=== PATIENT | female | born 1960 | race Caucasian/White ===

== ENCOUNTER → 2020-06-24 08:56 | Outpatient (BNVA) | payer OTHER, SELFPAY | PROVIDERS: Visit Provider Internal Medicine Critical Care Medicine | DX: Z01.812 Encounter for preprocedural laboratory examination (principal); Z20.822 Contact with and (suspected) exposure to COVID-19 | CPT/HCPCS: 87635 ==

== ENCOUNTER 2020-06-29 08:50 | Outpatient (CLI) | payer OTHER, SELFPAY ==
--- NOTE | 2020-06-29 08:58 | CT_ITS ---
WS: [id number] LDCT LUNG CANCER SCREENING TECHNIQUE: Noncontrast CT of the chest with coronal and sagittal reformatted images. CLINICAL INFORMATION: NICOTINE DEPENDENCE, CIGARETTES COMPARISON: CT chest 3 16,019 DLP: 56.96 mGy.cm DIvol: 1.[address] scans at [facility] use at least one of these dose optimization techniques: automat ed exposure control; mA and/or kV adjustment per patient size (includes targeted exams where dose is matched to clinical indication); or iterative reconstruction. FINDINGS: Advanced chronic emphysematous changes. Small esophageal hiatal hernia. Calcified granuloma left uppe r lobe. No suspicious pulmonary parenchymal abnormalities. No mediastinal or hilar lymphadenopathy. A drenal glands are normal. CT/CT lung screening [id number] IMPRESSION: LUNG-RADS: 2-Benign Appearance or Behavior FOLLOW UP: 12 Month: Continue annual screening with LDCT
--- NOTE | 2020-06-29 14:26 | PFTS_ITS ---
Date of Study:06/29/20 Date of Dictation: MECHANICS: Forced vital capacity (FVC) is reduced. Forced expiratory volume in one second (FEV1) is reduced. FEV1/FVC is reduced. FLOW VOLUME LOOP: Reduced flow at all lung volumes with significant scooping. LUNG VOLUMES: Total lung capacity (TLC) is increased. Residual volume (RV) is increased. DIFFUSING CAPACITY FOR CARBON MONOXIDE: Severely reduced. INTERPRETATION: The pulmonary function tests are consistent with very severe airflow obstruction. There is no significant postbronchodilator response. Lung volumes are consistent with hyperinflation and air trapping. Gas exchange (DLCO) is severely reduced. MTDD
== END 2020-06-29 08:51 | disposition home or self-care (01) ==
LOC: RT 08:52
PROVIDERS: PCP Internal Medicine; Visit Provider Internal Medicine Critical Care Medicine
DX: Z12.2 Encounter for screening for malignant neoplasm of respiratory organs (principal); F17.210 Nicotine dependence, cigarettes, uncomplicated
CPT/HCPCS: 71271; 94010; 94726; 94729

== ENCOUNTER 2022-01-25 07:50 | Outpatient (CLI) | payer OTHER, SELFPAY ==
--- NOTE | 2022-01-25 07:56 | CT_ITS ---
WS: [id number] LDCT LUNG CANCER SCREENING TECHNIQUE: Noncontrast CT of the chest with coronal and sagittal reformatted images. CLINICAL INFORMATION: annual lung screening COMPARISON: June 29, 2020 DLP: 71.50 mGy.cm DIvol: Mean CTDIvol: 1.60 (mGy) All CT scans at [facility] use at least one of these dose optimization techniques: automat ed exposure control; mA and/or kV adjustment per patient size (includes targeted exams where dose is matched to clinical indication); or iterative reconstruction. FINDINGS: Aortic calcification. Normal caliber thoracic aorta. Coronary calcification. No mediastinal or hilar lymphadenopathy. No axillary lymphadenopathy. Adrenal glands are normal. Small esophageal hiatal hernia. Mild thoracic kyphosis. New suspicious spi culated lesion along the LEFT upper lobe posteriorly. This measures approximately 8.7 x 1.3 CM. This extends over approximately 2.3 CM on the sagittal imaging. Recommend further evaluation with PET/CT. Calcified granuloma LEFT upper lobe. Tiny subpleural nodule LEFT upper lobe anteriorly. Tiny subpleural nodule RIGHT upper lobe. CT/CT lung screening [id number] IMPRESSION: New spiculated lesion in the LEFT upper lobe just above the superio r hilum medially. This has a suspicious appearance and recommend further evalua tion with PET/CT. LUNG-RADS: 4B-Suspicious FOLLOW UP: PET/CT recommended
== END 2022-01-25 07:51 | disposition home or self-care (01) ==
LOC: RAD 07:52
PROVIDERS: PCP Internal Medicine; Visit Provider Internal Medicine Critical Care Medicine
DX: Z12.2 Encounter for screening for malignant neoplasm of respiratory organs (principal); F17.210 Nicotine dependence, cigarettes, uncomplicated
CPT/HCPCS: 71271

== ENCOUNTER 2022-02-27 10:30 | Outpatient (CLI) | payer OTHER, SELFPAY | END 2022-02-27 10:31 | disposition home or self-care (01) | LOC: SLEEP 02-28 15:01 | PROVIDERS: PCP Internal Medicine; Visit Provider Internal Medicine Critical Care Medicine | DX: J44.9 Chronic obstructive pulmonary disease, unspecified (principal) | CPT/HCPCS: 94762 ==

== ENCOUNTER 2022-03-03 09:05 | Outpatient (CLI) | payer OTHER, SELFPAY ==
--- NOTE | 2022-03-03 09:30 | PETR_ITS ---
PROCEDURE INFORMATION: Exam: PET/CT Skull Base to Mid-thigh Exam date and time: 03/03/2022 10:03 AM Age: 61 years old Clinical indication: Abnormal findings; Abnormal CT lung screen 01/25/2022; Additional info: Spiculated lesion, lrads 4b-suspicious, 01/25/22 CT shows new spiculated lesion in the left upper LABS AND CLINICAL REPORTS: Glucose: 71 mg/dl Treatment strategy for malignancy (PET staging): Initial Staging (PI) TECHNIQUE: Imaging protocol: Following at least four-hour fasting and following the injection of F-18-FDG, low dose CT images were obtained. Then, PET images were obtained. Attenuation corrected images were constructed using the CT scan. Fused images of PET and CT were reviewed. The standardized uptake values (SUV) reported below are maximum values within a region of interest, expressed in gm/ml. Exam includes orbital meatal line to mid-thigh. Radiopharmaceutical: 1359 mCi F-18 FDG (Fluorodeoxyglucose), IV. Time of imaging post radiopharmaceutical administration: 1 hour Injection site: Information not provided COMPARISON: CT lung screening [id number] 01/25/2022 8:03 AM FINDINGS: Brain: Visualized brain has normal physiologic uptake. Pharynx: No abnormal uptake. Larynx: No abnormal uptake. Lungs, pleura and trachea: 17 x 8 mm spiculated nodule in the left upper lobe on image 38 measures 2.9 SUV. 7 x 6 mm nodule in the superior segment of the left lower lobe on image 44 measures 2 SUV. 4 mm calcified granuloma noted in the apex of the left upper lobe. There is moderate centrilobular emphysema most prominent in the upper lungs. No pleural effusion. Heart: Normal physiologic uptake. There is no cardiomegaly. Mild coronary artery calcification is present. There is no pericardial effusion. Mediastinal space: See below in lymph nodes . There is a small hiatal hernia. Liver: No abnormal uptake. Gallbladder and bile ducts: No abnormal uptake. No calcified gallstones. Pancreas: No abnormal uptake. Spleen: No abnormal uptake. No splenomegaly. Adrenal glands: No abnormal uptake. Kidneys and ureters: Normal physiologic uptake. No hydronephrosis. Subtle linear capsular calcification laterally in the mid/lower pole of the left kidney on image 85. Stomach and bowel: No abnormal uptake. No abnormal dilatation of the bowel. Intraperitoneal and retroperitoneal spaces: No abnormal uptake. No ascites. Bladder: Normal physiologic uptake. Reproductive: No abnormal uptake. 1.2 cm calcified nodule exophytic from the uterine fundus is suggestive of degenerative fibroid. About 5.6 x 3 cm heterogenous density oval-shaped structure in the expected location of the right adnexa to the right of the uterine body on axial image 121 with low-grade uptake of 1.3 SUV is suggestive of benign finding, partially calcified exophytic uterine fibroid or complex right ovarian lesion. Vasculature: No abnormal uptake. No aortic aneurysm. Lymph nodes: Borderline increased uptake of 2.9 SUV on the right side and 2.3 SUV on the left side noted within normal size hilar lymph nodes which is not entirely specific and can be benign reactive in nature. No FDG avid lymphadenopathy in the neck, abdomen, pelvis, and extremities. Bones/joints: No abnormal uptake in the visualized axial and appendicular skeleton. Soft tissues: No mass. Increased intramuscular uptake in both shoulders on the left more than on the right side is suggestive of benign finding. PET/PET [facility] INITIAL [id number] IMPRESSION: Two FDG avid findings in the left lung are concerning for malignancy (17 x 8 mm spiculated nodule in the left upper lobe measuring 2.9 SUV, 7 x 6 mm nodule in the superior segment of the left lower lobe measuring 2 SUV). Low-grade uptake of 2.3-2.9 SUV within bilateral normal size hilar lymph nodes is nonspecific. There is no FDG avid findings outside of the chest to suggest distant metastatic disease. There is benign intramuscular uptake in the shoulders more prominently on the left side. About 5.6 x 3 cm non FDG avid finding in the area of the right adnexa is likely benign representing either exophytic uterine fibroid or complex right ovarian lesion. If no prior exams are available for comparison to confirm long-term stability further evaluation with pelvic ultrasound can be considered if clinically warranted.
== END 2022-03-03 09:06 | disposition home or self-care (01) ==
LOC: RAD 03-05 05:59
PROVIDERS: PCP Internal Medicine; Visit Provider Internal Medicine Pulmonary Disease
DX: R91.8 Other nonspecific abnormal finding of lung field (principal)
CPT/HCPCS: 78815; A9552

== ENCOUNTER 2022-06-04 09:54 | Outpatient (CLI) | payer OTHER, SELFPAY ==
--- NOTE | 2022-06-04 10:00 | CT_ITS ---
WS: [id number] CT CHEST TECHNIQUE: Noncontrast CT of the chest with coronal and sagittal reformatted images. CLINICAL INFORMATION: 3 month f/u nodule COMPARISON: PET/CT March 03, 2022. CT lung screen January 25, 2022 DLP: 223.[address] scans at [facility] use at least one of these dose optimization techniques: automated e xposure control; mA and/or kV adjustment per patient size (includes targeted exams where dose is matc hed to clinical indication); or iterative reconstruction. FINDINGS: Moderate to advanced chronic emphysematous changes. Normal caliber thoracic aorta. Aortic calcificati on. Coronary calcification. No mediastinal or hilar lymphadenopathy. No axillary lymphadenopathy. Sma ll esophageal hiatal hernia. Adrenal glands are normal. Spiculated lesion LEFT upper lobe measures approximately 1.4 x 0.8 x 2.1 cm on the sagittal imaging u nchanged since January 25, 2022. This is is also unchanged since the recent PET/CT. This was FDG clarence d on the recent PET/CT suspicious for neoplasm. Additional FDG avid nodule in the superior segment LEFT lower lobe measuring 6 mm difficult to ident elle on the axial imaging today due to slice thickness. This is better seen on the coronal and sagitta l reformatted images measuring 6 mm and appears unchanged. No mediastinal or hilar lymphadenopathy. No other suspicious findings. CT/CT chest wo con [id number] IMPRESSION: 1. Previously described FDG avid LEFT upper lobe spiculated nodule is unchange d since January 25, 2022. 2. Additional FDG avid 6 mm nodule in the superior segment LEFT lower lobe bet ter seen on the coronal and sagittal reformatted images today is also unchanged since the recent PET/CT and prior study of January 25, 2022 3. No mediastinal or hilar lymphadenopathy.
== END 2022-06-04 09:55 | disposition home or self-care (01) ==
LOC: RAD 09:56
PROVIDERS: PCP Internal Medicine; Visit Provider Internal Medicine Pulmonary Disease
DX: R91.8 Other nonspecific abnormal finding of lung field (principal)
CPT/HCPCS: 71250

== ENCOUNTER 2022-08-22 15:52 | Inpatient (IN) | payer OTHER, SELFPAY ==
[2022-08-22] VITALS (14 sets, daily range): BP systolic 127–155; BP diastolic 69–112; PULSE 93–115; RESP 17–33; TEMP 36.9–37.2; O2SAT 83–98
--- NOTE | 2022-08-22 16:13 | ECG_ITS ---
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 Measurements Intervals [place] Rate: 106 P: 85 NH: 139 QRS: 81 QRSD: 78 T: 78 QT: 327 QTc: 436 Interpretive Statements SINUS TACHYCARDIA RIGHT ATRIAL ENLARGEMENT [0.3mV P-WAVE] MODERATE ST DEPRESSION [0.05+ mV ST DEPRESSION] Compared to ECG 05/10/2018 14:54:06 ST (T wave) deviation now present Myocardial infarct finding no longer present Electronically Signed On 08-23-2022 11:03:19 CDT by Rica Castillo M.D. [email or web address]
--- NOTE | 2022-08-22 16:14 | XR_ITS ---
WS: [id number] Exam: XR chest 1V portable [id number] Date/Time of Exam: 08/22/2022 4:15 PM Reason For Exam: sob Comparison 05/10/2018. The lungs are clear and fully inflated. Normal cardiomediastinal silhouette. Bony structures are inta ct. XR/XR chest 1V portable [id number] IMPRESSION: 1. No acute cardiopulmonary finding. Pulmonary hyperinflation.
--- NOTE | 2022-08-22 16:24 | W.ED.SOB ---
HPI - SOB/Dyspnea General: Chief Complaint: Shortness of Breath/Dyspnea Stated Complaint: SOB, High HR Time Seen by Provider: 08/22/22 16:11 Source: patient Mode of arrival: ambulatory Limitations: no limitations History of Present Illness: HPI Narrative: 61-year-old female has a history of COPD states she has been having an increased cough over the last 3 days productive of yellow sputum she has been more short of breath she does not wear oxygen at home she was in the 80s in the waiting room currently on 3 L she has had increased wheezing as well denies any fevers denies any pain. [facility] ED PFSH: Medical History Chronic obstructive pulmonary disease Surgical History Hx of section Family History Mother CHF (congestive heart failure) Hypertension Diabetes Brother Hypertension Father Cancer Lung Grandmother Diabetes Social History Smoking and tobacco status: current every day smoker cigarettes Packs smoked per day: 0.5 Years cigarettes smoked: 46 [ Other cigarette details: 1 ppd X 40 years, Started at age 16 years.] Quit status (tobacco): considering quitting Second hand smoke exposure: Yes Smoking risk assessment/counseling performed?: Yes Alcohol intake: former Substance/Drug Use: never Lives independently: Yes Household members: spouse Marital status: Current occupational status: employed Current occupation: [employer] Pets and animals: Yes Do you think of yourself as: Straight/Heterosexual Current gender identity: Female Physical Exam Const: COMMON NORMALS: patient oriented x3 GENERAL APPEARANCE: in distress and ill appearing HENMT: COMMON NORMALS: normocephalic HEAD & SCALP: normocephalic Eye: COMMON NORMALS: Equal, round and reactive pupils present and EOMs intact bilaterally PUPIL: Yes Equal, round and reactive pupils present Neck/C-Spine: COMMON NORMALS: full ROM and supple Chest: COMMONS NORMALS: normal inspection of the chest and normal palpation of entire chest wall Resp: EFFORT & INSPECTION: Yes tachypneic AUSCULTATION: wheezes Cardio: COMMON NORMALS: regular rhythm and No murmurs present (Cardio) RATE: tachycardic RHYTHM: regular rhythm GI: COMMON NORMALS: Normal to inspection, nondistended, normoactive bowel sounds present, Soft to palpation, non-tender and no masses PALPATION: Yes Soft to palpation Extremity: COMMON NORMALS: normal to inspection and full ROM Neuro: COMMON NORMALS: patient oriented x3, moves all extremities and no focal motor deficits Psych: COMMON NORMALS: mental status grossly normal, Normal thought process present and cooperative THOUGHT PROCESS: Normal thought process present Skin: COMMON NORMALS: no rashes or lesions noted and no wounds GENERAL SKIN EXAM: no rashes or lesions noted Course Vital Signs: Vital signs: Vital Signs Temperature 98.4 F 08/22/22 16:01 Pulse Rate 108 H 08/22/22 17:02 Respiratory Rate 33 H 08/22/22 17:02 Blood Pressure 155/112 08/22/22 17:02 Pulse Oximetry 97 08/22/22 17:02 Oxygen Delivery Me thod CPAP 08/22/22 17:02 Oxygen Flow Rate 3 08/22/22 16:34 Fraction of Inspir ed Oxygen 30 08/22/22 16:51 MDM - SOB/Dyspnea Medical Decision Making Patient presents here with COPD exacerbation she was hypoxic here she is currently on BiPAP she is improved here x-ray shows no definite pneumonia but she has had a cough with sputum changes gave IV antibiotics, blood culture she will be admitted I spoke to hospitalist who will admit. Medical Records I reviewed the patient's medical records. Lab Data I reviewed the patient's lab results. 08/22/22 16:20 08/22/22 16:20 Labs/Radiology: Laboratory Results WBC 6.9 10^3/uL (4.0-10.0) 08/22/22 16:20 RBC 5.46 10^6/uL (4.1-5.3) H 08/22/22 16:20 Hgb 16.3 g/dL (11.5-15.3) H 08/22/22 16:20 Hct 50.1 % (37.0-47.0) H 08/22/22 16:20 MCV 91.8 fl (81-99) 08/22/22 16:20 MCH 29.9 pg (28.0-34.0) 08/22/22 16:20 MCHC 32.5 g/dL (30.0-36.0) 08/22/22 16:20 RDW 13.7 % (12.1-15.1) 08/22/22 16:20 Plt Count 177 10^3/cmm (130-400) 08/22/22 16:20 MPV 11.2 fL (7.4-10.4) H 08/22/22 16:20 Neut % (Auto) 71.7 % 08/22/22 16:20 Lymph % (Auto) 11.0 % 08/22/22 16:20 [place] % (Auto) 15.9 % 08/22/22 16:20 Eos % (Auto) 0.7 % 08/22/22 16:20 Baso % (Auto) 0.6 % 08/22/22 16:20 Neut # (Auto) 4.96 10^3/uL (1.8-7.7) 08/22/22 16:20 Lymph # (Auto) 0.8 10^3/uL (0.8-4.8) 08/22/22 16:20 [place] # (Auto) 1.1 10^3/uL (0.2-0.9) H 08/22/22 16:20 Eos # (Auto) 0.1 10^3/uL (0.0-0.8) 08/22/22 16:20 Baso # (Auto) 0.0 10^3/uL (0.0-0.1) 08/22/22 16:20 Nucleated RBC % (auto) 0 % 08/22/22 16:20 Nucleated RBCs # 0.0 /100WBC 08/22/22 16:20 Specimen Type Arterial 08/22/22 16:15 Sample Site Brachial, right 08/22/22 16:15 ABG pH 7.37 (7.35-7.45) 08/22/22 16:15 ABG pCO2 47.9 mmHg (35-45) H 08/22/22 16:15 ABG pO2 87.3 mmHg (80.0-100.0) 08/22/22 16:15 ABG HCO3 27.5 mmol/L (22-26) H 08/22/22 16:15 ABG Base Excess 1.3 mmol/L (-2.0-2.0) 08/22/22 16:15 Twan Test N/a 08/22/22 16:15 Hematocrit 48.6 % (37-47) H 08/22/22 16:15 Hgb O2 Saturation 95.0 % (95-100) 08/22/22 16:15 Carboxyhemoglobin 2.0 %THgb (0.4-20.1) 08/22/22 16:15 Methemoglobin 0.8 % (0.4-1.5) 08/22/22 16:15 Total Hemoglobin 15.9 g/dL (12-16) 08/22/22 16:15 O2 Delivery Device Nc 08/22/22 16:15 O2 Liters/Min 2.5 % 08/22/22 16:15 Quality Process Lead ID Gd 08/22/22 16:15 Sodium 136 mmol/L (136-145) 08/22/22 16:20 Potassium 4.1 mmol/L (3.5-5.1) 08/22/22 16:20 Chloride 98 mmol/L (98-107) 08/22/22 16:20 Carbon Dioxide 26 mmol/L (22-29) 08/22/22 16:20 Anion Gap 16.1 (5-19) 08/22/22 16:20 BUN 15 mg/dL (8-23) 08/22/22 16:20 Creatinine 0.5 mg/dL (0.5-0.9) 08/22/22 16:20 GFR Calculation 125.4 mL/min (90-130) 08/22/22 16:20 Glucose 94 mg/dL (65-115) 08/22/22 16:20 Calculated Osmolality 283 mOsm/kg (285-295) L 08/22/22 16:20 Calcium 9.0 mg/dL (8.5-10.5) 08/22/22 16:20 Total Bilirubin 0.5 mg/dL (0.15-1.2) 08/22/22 16:20 AST 23 U/L (0-32) 08/22/22 16:20 ALT 24 U/L (0-33) 08/22/22 16:20 Alkaline Phosphatase 131 U/L (35-105) H 08/22/22 16:20 NT-Pro-B Natriuret Pep 1822 pg/mL (0-125) H 08/22/22 16:20 Total Protein 7.4 g/dL (6.6-8.7) 08/22/22 16:20 Albumin 4.1 g/dL (3.5-5.2) 08/22/22 16:20 Globulin 3.3 g/dL (1.3-4.6) 08/22/22 16:20 SARS-CoV-2 Ag (Rapid) negative (Negative) 08/22/22 16:48 EKG Data EKG 1: I personally reviewed and interpreted this EKG as follows: EKG Interpretation Date: 08/22/22 EKG interpretation time: 16:30 Interpretation: sinus tach hr [address] or t wave abnormalities qrs 78 qtc 389 Discharge Plan Discharge Patient Disposition: Admitted As Inpatient Clinical Impression: Acute exacerbation of chronic obstructive airways disease, Acute respiratory failure with hypoxia Condition: Stable Prescriptions: No Action sertraline 50 mg tablet 50 mg PO BEDTIME albuterol sulfate 2.5 mg /3 mL (0.083 %) solution for nebulization 2.5 mg inhalation Q4H PRN (Reason: shortness of breath or wheezing) Qty: 180 3RF prednisone 5 mg tablet 5 mg PO DAILY 90 Days Qty: 90 1RF montelukast 10 mg tablet 10 mg PO DAILY PRN (Reason: Allergy Symptoms) Combivent Respimat 20-100 mcg/actuation mist 1 puff INHALATION QID Trelegy Ellipta 100-62.5-25 mcg blister with device 1 inh INHALATION DAILY Proventil HFA 90 mcg/actuation HFA aerosol inhaler 2 puff inhalation Q4H PRN (Reason: shortness of breath or wheezing) Referrals: Teodoro Peter DO [Primary Care Provider] - Coding Level of Care Code ED Drive Thru Order Taker for Chg Jaky
[2022-08-22 16:29] LABS: ABG PCO2 47.9 mmHg (35-45); ABG PH Result 7.37 (7.35-7.45); Arterial Blood Gas Hematocrit 48.6 % (37-47); Base Excess ABG 1.3 mmol/L (-2.0-2.0); Blood Gas LPM 2.5 %; Blood Gas Operator Identificat GD; Blood Gas Sample Site Brachial, right; Blood Gas Sample Type Arterial; HCO3 ABG 27.5 mmol/L (22-26); Methemoglobin 0.8 % (0.4-1.5); Oxygen Device NC; PO2 ABG 87.3 mmHg (80.0-100.0); Total Hemoglobin 15.9 g/dL (12-16)
[2022-08-22 16:39] LABS: Basophils % 0.6 %; Eosinophils # 0.1 10^3/uL (0.0-0.8); Eosinophils % 0.7 %; Hematocrit 50.1 % (37.0-47.0); Hemoglobin 16.3 g/dL (11.5-15.3); Lymphocytes # 0.8 10^3/uL (0.8-4.8); Mean Corpuscular HGB Conc 32.5 g/dL (30.0-36.0); Mean Corpuscular Hemoglobin 29.9 pg (28.0-34.0); Mean Corpuscular Volume 91.8 fl (81-99); Mean Platelet Volume 11.2 fL (7.4-10.4); Monocytes # 1.1 10^3/uL (0.2-0.9); Monocytes % 15.9 %; Neutrophils # 4.96 10^3/uL (1.8-7.7); Neutrophils % 71.7 %; Nucleated Red Blood Cells % 0 %; Platelet Count 177 10^3/cmm (130-400); Red Blood Count 5.46 10^6/uL (4.1-5.3); Red Cell Distribution Width 13.7 % (12.1-15.1); White Blood Count 6.9 10^3/uL (4.0-10.0)
[2022-08-22] MEDS: albuterol 2.5 mg/3 mL Neb 5 MG INHALATION (16:44)
[2022-08-22] MEDS: ipratropium 0.5 mg/2.5 mL Neb INHALATION ×2 (16:45→21:59)
--- NOTE | 2022-08-22 16:48 | PC.PHAR ---
pt and pts states the pt doesnt use budesonide 0.5mg/2ml suspension 1 vial bid,perforomist 2ml bid or yupelri 175mcg daily states not covered by insurance states the pt is using the trelegy elliptal-
[2022-08-22] MEDS: methylPREDNISolone sod succ 125 mg SDV IV (17:09)
[2022-08-22 17:13] LABS: Alanine Aminotransferase 24 U/L (0-33); Albumin Level 4.1 g/dL (3.5-5.2); Alkaline Phosphatase 131 U/L (35-105); Aspartate Amino Transferase 23 U/L (0-32); Blood Urea Nitrogen 15 mg/dL (8-23); Carbon Dioxide 26 mmol/L (22-29); Chloride 98 mmol/L (98-107); Globulin 3.3 g/dL (1.3-4.6); Glomerular Filtration Rate 125.4 mL/min (90-130); Glucose 94 mg/dL (65-115); NT Pro B Type Natriuretic Pept 1822 pg/mL (0-125); Osmolality Calculated 283 mOsm/kg (285-295); Sodium 136 mmol/L (136-145); Total Bilirubin 0.5 mg/dL (0.15-1.2); Total Protein 7.4 g/dL (6.6-8.7)
[2022-08-22 17:16] LABS: Anion Gap 16.1 (5-19); Potassium 4.1 mmol/L (3.5-5.1)
[2022-08-22] MEDS: cefTRIAXone 1,000 MG in sodium chloride 0.9% (plus) 50 ML 100 MG IV ×2 (17:18→21:15)
[2022-08-22 17:28] LABS: SARS Covid-2 Antigen negative (Negative)
--- NOTE | 2022-08-22 17:47 | PC.NURSE ---
HAD TO PLACE CEFTRIAXONE ON A PUMP
--- NOTE | 2022-08-22 17:49 | PM.HP ---
Providers/Chief Complaint Primary Care Provider: Teodoro Peter DO Chief Complaint: SOB, High HR History of Present Illness Ebonie Damon is a 61 year old female with past medical history of COPD, emphysema, chronic smoker presents to the ER today with worsening difficulty in breathing and cough with expectoration over last 3 days. As per patient she is not on baseline oxygen but has been feeling more out of breath recently both at rest and on exertion. Denies any nausea vomiting, headache, dizziness, fever, recent travel or sick exposure. In the ER was found to be saturating in low 80s hence was placed on oxygen. Patient required BiPAP to decrease work of breathing. She has received nebulization treatment and 125 mg of IV Solu-Medrol. She was also given IV ceftriaxone and azithromycin with concerns for possible community-acquired pneumonia. Review of Systems General: Reports: 10 or more systems reviewed and unremarkable except in HPI and below Const: Denies: fever(s), chills, body aches, change in appetite, change in weight, malaise, night sweats, diaphoresis, change in sleep pattern, daytime sleepiness or snoring Eyes: Denies: change in vision, blurry vision, photophobia, eye discomfort or eye discharge ENMT: Denies: throat pain, enlarged tonsils, hoarseness, mouth pain, oral sores, dry mouth, tinnitus, nasal congestion or post nasal drip Card: Denies: chest pain, palpitations, irregular heart rhythm, edema, swelling of feet/ankles, lightheadedness, syncope, pre-syncope, dyspnea on exertion, orthopnea, leg pain with exertion or acrocyanosis Resp: Denies: dyspnea, productive cough, non-productive cough, wheezing, stridor, pain on inspiration, change in phlegm color, hemoptysis or chest congestion GI: Denies: abdominal pain, nausea, vomiting, hematemesis, coffee ground emesis, dysphagia, heartburn, diarrhea, constipation, bloating, GI cramping, change in bowel habits, pain on defecation, hematochezia or melena : Denies: flank pain, dysuria, urinary frequency, urinary urgency, urinary hesitancy, nocturia or hematuria Musc: Denies: neck pain, back pain, extremity pain, joint pain, joint swelling, joint redness, joint stiffness or limited range of motion Neuro: Denies: headache(s), numbness in extremities, weakness in extremities, sensory changes, lack of coordination, difficulty walking, frequent falls, dizziness, vertigo, confusion, Slurred speech present, difficulty communicating thoughts or seizure-like activity Psych: Denies: anxiety, depression, mood swings, panic attacks, hopelessness or irritability Endo: Denies: polyuria, polydipsia, tired all the time, cold intolerance, excessive sweating, flushing or heat intolerance Peña/Lymph: Denies: easy bruising or easy bleeding All/Imm: Denies: tongue swelling, facial swelling or acute wheezing Medications/Allergies Home Medications Medication Instructions Recorded Confirmed Last Taken Type albuterol sulfate 2.5 mg/3 mL 2.5 mg (3 mL) inhalation Q4H PRN 12/07/20 08/22/22 Unknown Rx (0.083 %) solution for nebulization shortness of breath or wheezing #180 mL prednisone 5 mg tablet 5 mg PO DAILY 90 days #90 tabs 03/26/22 08/22/22 08/21/22 Rx sertraline 50 mg tablet 50 mg PO BEDTIME 05/21/22 08/22/22 08/21/22 History albuterol sulfate 90 mcg/actuation 2 puff inhalation Q4H PRN 08/22/22 08/22/22 Unknown History aerosol inhaler (Proventil HFA) shortness of breath or wheezing fluticasone fur. 100 mcg-umeclid 1 inh inhalation DAILY 08/22/22 08/22/22 Unknown History 62.5 mcg-vilant 25 mcg inhalat.powder (Trelegy Ellipta) ipratropium 20 mcg-albuterol 100 1 puff inhalation QID 08/22/22 08/22/22 Unknown History mcg/actuation mist for inhalation (Combivent Respimat) montelukast 10 mg tablet 10 mg PO DAILY PRN Allergy Symptoms 08/22/22 08/22/22 Unknown History Allergies Allergy/AdvReac Type Severity Reaction Status Date / Time No Known Allergies Allergy Verified 08/22/22 16:43 PFSH Acute PFSH: Medical History Chronic obstructive pulmonary disease Surgical History Hx of section Family History Mother CHF (congestive heart failure) Hypertension Diabetes Brother Hypertension Father Cancer Lung Grandmother Diabetes Social History Smoking and tobacco status: current every day smoker cigarettes Packs smoked per day: 0.5 Years cigarettes smoked: 46 [ Other cigarette details: 1 ppd X 40 years, Started at age 16 years.] Quit status (tobacco): considering quitting Second hand smoke exposure: Yes Smoking risk assessment/counseling performed?: Yes Alcohol intake: former Substance/Drug Use: never Lives independently: Yes Household members: spouse Marital status: Current occupational status: employed Current occupation: [employer] Pets and animals: Yes Do you think of yourself as: Straight/Heterosexual Current gender identity: Female Vitals/I&O/Wt Last Vital Signs Temp 98.4 F 08/22/22 16:01 Pulse 108 H 08/22/22 17:02 Resp 33 H 08/22/22 17:02 BP 155/112 08/22/22 17:02 Pulse Ox 97 08/22/22 17:02 O2 Del Method CPAP 08/22/22 17:02 O2 Flow Rate 3 08/22/22 16:34 FiO2 30 08/22/22 16:51 Weight last 48 hrs Weight 59.874 kg Physical Exam Narrative: EXAM NARRATIVE: General: No acute distress, AO x3, NC oxygen supplementation HEENT: PERRLA, pupils bilaterally equal and reactive Chest: Bilateral bronchial breath sounds all over lung fontaine with occasional rhonchi and fine crackles CVS: S1-S2 regular, no murmurs, tachycardia, no gallops, no rubs Abdomen: Soft, nontender, no organomegaly, bowel sounds present, morbidly obese Neuro: No focal deficits, no facial deformity, AO x3, power 5/5 in all limbs Data 08/23/22 04:50 08/23/22 04:50 Other Labs: Laboratory Results WBC 6.9 10^3/uL (4.0-10.0) 08/22/22 16:20 RBC 5.46 10^6/uL (4.1-5.3) H 08/22/22 16:20 Hgb 16.3 g/dL (11.5-15.3) H 08/22/22 16:20 Hct 50.1 % (37.0-47.0) H 08/22/22 16:20 MCV 91.8 fl (81-99) 08/22/22 16:20 MCH 29.9 pg (28.0-34.0) 08/22/22 16:20 MCHC 32.5 g/dL (30.0-36.0) 08/22/22 16:20 RDW 13.7 % (12.1-15.1) 08/22/22 16:20 Plt Count 177 10^3/cmm (130-400) 08/22/22 16:20 MPV 11.2 fL (7.4-10.4) H 08/22/22 16:20 Neut % (Auto) 71.7 % 08/22/22 16:20 Lymph % (Auto) 11.0 % 08/22/22 16:20 Pershing % (Auto) 15.9 % 08/22/22 16:20 Eos % (Auto) 0.7 % 08/22/22 16:20 Baso % (Auto) 0.6 % 08/22/22 16:20 Neut # (Auto) 4.96 10^3/uL (1.8-7.7) 08/22/22 16:20 Lymph # (Auto) 0.8 10^3/uL (0.8-4.8) 08/22/22 16:20 Pershing # (Auto) 1.1 10^3/uL (0.2-0.9) H 08/22/22 16:20 Eos # (Auto) 0.1 10^3/uL (0.0-0.8) 08/22/22 16:20 Baso # (Auto) 0.0 10^3/uL (0.0-0.1) 08/22/22 16:20 Nucleated RBC % (auto) 0 % 08/22/22 16:20 Nucleated RBCs # 0.0 /100WBC 08/22/22 16:20 Specimen Type Arterial 08/22/22 16:15 Sample Site Brachial, right 08/22/22 16:15 ABG pH 7.37 (7.35-7.45) 08/22/22 16:15 ABG pCO2 47.9 mmHg (35-45) H 08/22/22 16:15 ABG pO2 87.3 mmHg (80.0-100.0) 08/22/22 16:15 ABG HCO3 27.5 mmol/L (22-26) H 08/22/22 16:15 ABG Base Excess 1.3 mmol/L (-2.0-2.0) 08/22/22 16:15 Twan Test N/a 08/22/22 16:15 Hematocrit 48.6 % (37-47) H 08/22/22 16:15 Hgb O2 Saturation 95.0 % (95-100) 08/22/22 16:15 Carboxyhemoglobin 2.0 %THgb (0.4-20.1) 08/22/22 16:15 Methemoglobin 0.8 % (0.4-1.5) 08/22/22 16:15 Total Hemoglobin 15.9 g/dL (12-16) 08/22/22 16:15 O2 Delivery Device Nc 08/22/22 16:15 O2 Liters/Min 2.5 % 08/22/22 16:15 Picture Copyist ID [id number] 08/22/22 16:15 Sodium 136 mmol/L (136-145) 08/22/22 16:20 Potassium 4.1 mmol/L (3.5-5.1) 08/22/22 16:20 Chloride 98 mmol/L (98-107) 08/22/22 16:20 Carbon Dioxide 26 mmol/L (22-29) 08/22/22 16:20 Anion Gap 16.1 (5-19) 08/22/22 16:20 BUN 15 mg/dL (8-23) 08/22/22 16:20 Creatinine 0.5 mg/dL (0.5-0.9) 08/22/22 16:20 GFR Calculation 125.4 mL/min (90-130) 08/22/22 16:20 Glucose 94 mg/dL (65-115) 08/22/22 16:20 Calculated Osmolality 283 mOsm/kg (285-295) L 08/22/22 16:20 Calcium 9.0 mg/dL (8.5-10.5) 08/22/22 16:20 Total Bilirubin 0.5 mg/dL (0.15-1.2) 08/22/22 16:20 AST 23 U/L (0-32) 08/22/22 16:20 ALT 24 U/L (0-33) 08/22/22 16:20 Alkaline Phosphatase 131 U/L (35-105) H 08/22/22 16:20 NT-Pro-B Natriuret Pep 1822 pg/mL (0-125) H 08/22/22 16:20 Total Protein 7.4 g/dL (6.6-8.7) 08/22/22 16:20 Albumin 4.1 g/dL (3.5-5.2) 08/22/22 16:20 Globulin 3.3 g/dL (1.3-4.6) 08/22/22 16:20 SARS-CoV-2 Ag (Rapid) negative (Negative) 08/22/22 16:48 Micro: Microbiology 08/22/22 16:29 Blood Culture - Preliminary Blood SPECIMEN COLLECTED 08/22/22 16:20 Blood Culture - Preliminary Blood SPECIMEN COLLECTED A&P Assessment and plan (1) Acute respiratory failure with hypoxia: Most likely secondary to COPD exacerbation. Check sputum culture, D-dimer, urine Legionella, bacterial antigen. Follow blood cultures sent in ER. If D-dimer positive will check CTA otherwise CT chest without contrast. Empirically start on IV ceftriaxone. Ipratropium, Xopenex every 6 hours, budesonide twice daily. Start on dexamethasone 6 mg IV daily. Will try for quick taper to home dose of prednisone 5 mg daily. Check echocardiogram for evaluation of pulmonary hypertension Oxygen supplementation keeping saturation over 88%. BiPAP as needed. (2) Acute exacerbation of chronic obstructive airways disease: (3) Nicotine addiction: Nicotine patch. Plan Full code. Cardiac diet. Heparin for DVT prophylaxis. Protonix for PUD prophylaxis. Attestations Medical Necessity Statement*: Admission for more than 2 midnights for management of acute respiratory failure with hypoxia in setting of COPD exacerbation Diagnoses Acute respiratory failure with hypoxia J96.01 Acute exacerbation of chronic obstructive airways disease J44.1 Nicotine addiction F17.200
[2022-08-22] MEDS: ondansetron 2 mg/ML SDV 2 mL 4 MG IVP (17:55)
[2022-08-22 18:00] LABS: D Dimer 1.18 ug/mIFEU (0-0.59)
--- NOTE | 2022-08-22 18:04 | CTR_ITS ---
PROCEDURE INFORMATION: Exam: CTA Chest With Contrast Exam date and time: 08/22/2022 7:30 PM Age: 61 years old Clinical indication: Shortness of breath; Additional info: Hypoxia resp failure TECHNIQUE: Imaging protocol: Computed tomographic angiography of the chest with contrast. Exam focused on the arteries. 3D rendering (Not supervised by radiologist): MIP and/or 3D reconstructed images were created by the technologist. Radiation optimization: All CT scans at this facility use at least one of these dose optimization techniques: automated exposure control; mA and/or kV adjustment per patient size (includes targeted exams where dose is matched to clinical indication); or iterative reconstruction. Contrast material: OMNI 350; Contrast volume: 100 ml; Contrast route: INTRAVENOUS (IV); REPORTING DATA: Count of CT and Cardiac NM exams in prior 12 months: This patient has received 3 known CTs and 0 known cardiac nuclear medicine studies in the 12 months prior to the current study. COMPARISON: CT chest wo con [id number] 06/04/2022 10:11 AM RADIATION DOSE METRICS: Total DLP (mGy-cm): 191.18 FINDINGS: Pulmonary arteries: No central or definite segmental PE is identified. Peripheral PE assessment is limited due to artifact. Aorta: Unremarkable. No aortic aneurysm. No aortic dissection. Lungs: Marked emphysema is unchanged. The lower lobe bronchi are thickened with distal bronchial mucoid impaction. Left upper lobe spiculated nodule measuring 1.7 cm maximum size is unchanged. Additional nodule superior segment of the left lower lobe measuring 7 mm is unchanged. There are new nodular/ground-glass infiltrates present in the inferior upper lobes, of the right middle lobe and right lower lobe. Left upper lobe calcified granuloma is unchanged. Pleural spaces: Unremarkable. No pneumothorax. No pleural effusion. Heart: Small pericardial effusion. Coronary arteries: Mild coronary artery atherosclerosis. Lymph nodes: 2 cm lymph node right hilum. In the left hilum there is a 1.2 cm lymph node also present. Bones/joints: Unremarkable. No acute fracture. Soft tissues: Unremarkable. CT/CT angio chest PE protcl [id number] IMPRESSION: 1. No pulmonary embolus identified. 2. There are new nodular basilar predominant infiltrates suspicious for possible pneumonia. Recommend clinical correlation and follow-up. 3. Spiculated nodule in the left upper lobe and additional left lower lobe nodule are unchanged. 4. Adenopathy in the right hilum [id number] is indeterminate. Correlate clinically. COMMENTS: In the absence of a history or active diagnosis of lung cancer, it is recommended that this patient with emphysema be evaluated for enrollment in a low dose CT lung cancer screening program.
[2022-08-22] MEDS: azithromycin 500 MG in sodium chloride 0.9% 250 ML 250 MG IV (18:11)
[2022-08-22] MEDS: FUROsemide 10 mg/mL SDV 2mL 20 MG IVP (18:27)
[2022-08-22 18:45] LABS: Iron 17 ug/dL (37-145); Percent Saturation 7.7 % (20-50); Total Iron Binding Capacity 220 mcg/dl; Unsaturated Iron Binding 203 ug/dL (112-347)
[2022-08-22 19:01] LABS: Procalcitonin 0.13 ng/mL (0-0.5); Vitamin B12 789 pg/mL (232-1245)
[2022-08-22] MEDS: iohexol 350 mg/mL 500 mL Btl (per mL) IV (19:50)
[2022-08-22 20:41] LABS: Thyroid Stimulating Hormone 3.35 uIU/mL (0.27-4.20)
[2022-08-22] MEDS: pantoprazole 40 mg SDV IVP (21:13)
[2022-08-22] MEDS: heparin 5,000 unit/mL INJ 1 mL 5000 UNIT SUBCUT (21:14)
[2022-08-22] MEDS: sertraline 50 mg Tablet PO (21:15)
[2022-08-22] MEDS: budesonide 0.5 mg/2 mL Neb INHALATION (21:59)
[2022-08-22] MEDS: levalbuterol 0.63 mg/3 mL Neb INHALATION (21:59)
[2022-08-22] MEDS: dexamethasone 10 mg/mL INJ 6 MG IVP (23:23)
[2022-08-23] VITALS (14 sets, daily range): BP systolic 108–130; BP diastolic 69–89; PULSE 3–103; RESP 16–24; TEMP 36.4–36.8; O2SAT 89–96
[2022-08-23 00:08] LABS: Add Urine Microscopic? NO; Charge for UA Resulting for Rev
[2022-08-23 00:17] LABS: Bilirubin Urine Neg (Negative); Blood Urine Neg (Negative); Glucose Urine UA 4+ (Normal); Ketones Urine 2+ (Negative); Leukocyte Esterase Urine Negative (Negative); Nitrate Urine Negative (Negative); Protein Urine Neg (Negative); Specific Gravity, Urine 1.015 (1.005-1.030); Urine Appearance Clear (CLEAR); Urine Color Yellow (Yellow); Urobilinogen Urine Norm (Negative); pH Urine 5 (5-7)
[2022-08-23] MEDS: levalbuterol 0.63 mg/3 mL Neb INHALATION ×4 (01:41→20:24)
[2022-08-23] MEDS: ipratropium 0.5 mg/2.5 mL Neb INHALATION ×4 (01:41→20:24)
[2022-08-23 05:30] LABS: Basophils % 0.4 %; Hematocrit 44.5 % (37.0-47.0); Hemoglobin 14.4 g/dL (11.5-15.3); Lymphocytes # 0.4 10^3/uL (0.8-4.8); Lymphocytes % 7.5 %; Mean Corpuscular HGB Conc 32.4 g/dL (30.0-36.0); Mean Corpuscular Hemoglobin 29.8 pg (28.0-34.0); Mean Corpuscular Volume 92.1 fl (81-99); Mean Platelet Volume 11.7 fL (7.4-10.4); Monocytes # 0.3 10^3/uL (0.2-0.9); Monocytes % 4.8 %; Neutrophils # 4.54 10^3/uL (1.8-7.7); Neutrophils % 86.9 %; Nucleated Red Blood Cells % 0 %; Platelet Count 175 10^3/cmm (130-400); Red Blood Count 4.83 10^6/uL (4.1-5.3); Red Cell Distribution Width 13.6 % (12.1-15.1); White Blood Count 5.2 10^3/uL (4.0-10.0)
[2022-08-23 05:40] LABS: Estmated Average Glucose 120; Hemoglobin A1C 5.8 % (4.0-6.0)
[2022-08-23 05:49] LABS: Alanine Aminotransferase 34 U/L (0-33); Albumin Level 3.4 g/dL (3.5-5.2); Alkaline Phosphatase 146 U/L (35-105); Anion Gap 15.1 (5-19); Aspartate Amino Transferase 29 U/L (0-32); Blood Urea Nitrogen 16 mg/dL (8-23); Calcium 9.1 mg/dL (8.5-10.5); Carbon Dioxide 27 mmol/L (22-29); Chloride 101 mmol/L (98-107); Globulin 3.3 g/dL (1.3-4.6); Glomerular Filtration Rate 125.4 mL/min (90-130); Glucose 137 mg/dL (65-115); Magnesium 2.2 mg/dL (1.7-2.3); Osmolality Calculated 291 mOsm/kg (285-295); Phosphorus 2.7 mg/dL (2.5-4.5); Potassium 4.1 mmol/L (3.5-5.1); Sodium 139 mmol/L (136-145); Total Bilirubin 0.2 mg/dL (0.15-1.2); Total Protein 6.7 g/dL (6.6-8.7)
[2022-08-23 05:50] LABS: Chol HDL Ratio 2.91 mg/dL (0.0-4.40); Cholesterol 157 mg/dL (0-200); HDL Cholesterol 54 mg/dL (60-100); LDL Cholesterol Calculated 85 mg/dL (50-129); LDL HDL Ratio 1.57 RATIO (0.00-3.22); Slide Review Slide Review Perform; Triglycerides 90 mg/dL (0-150)
[2022-08-23 06:04] LABS: Folate Level 8.5 ng/mL (4.8-37.3)
[2022-08-23] MEDS: budesonide 0.5 mg/2 mL Neb INHALATION ×2 (08:58→20:24)
[2022-08-23] MEDS: heparin 5,000 unit/mL INJ 1 mL 5000 UNIT SUBCUT ×2 (09:26→21:31)
[2022-08-23] MEDS: azithromycin 250 mg Tablet 500 MG PO (09:26)
--- NOTE | 2022-08-23 10:55 | P.PN_ITS ---
Subjective Subjective: No acute events overnight. Overnight patient has been on and off on BiPAP. Today morning seen on 4 L of oxygen supplementation which was gradually turned down to 2 L with target oxygen supplementation off over 88. Patient states she is feeling a lot better and almost back to her baseline breathing. Denies any nausea, vomiting, headache. Blood work appreciated for a stable CBC without leukocytosis, stable CMP, normal A1c, mildly elevated ALT and alkaline phosphatase, UA negative for any sign of infection. Vitals/I&O/Wt Last Vital Signs Temp 97.7 F 08/23/22 08:00 Pulse 103 H 08/23/22 09:15 Resp 24 H 08/23/22 08:55 BP 123/73 08/23/22 08:00 Pulse Ox 95 08/23/22 08:55 O2 Del Method Nasal Cannula 08/23/22 08:55 O2 Flow Rate 4 08/23/22 08:55 FiO2 30 08/23/22 01:43 08/22/22 08/23/22 08/23/22 22:59 06:59 14:59 Intake Total 350 / 350 Balance 350 / 350 Weight last 48 hrs Weight 59.874 kg Physical Exam Narrative: EXAM NARRATIVE: General: No acute distress, AO x3, NC oxygen supplementation, requiring on a BiPAP ventilation, in respiratory distress on ambulation HEENT: PERRLA, pupils bilaterally equal and reactive Chest: Bilateral bronchial breath sounds all over lung fontaine with occasional rhonchi and fine crackles CVS: S1-S2 regular, no murmurs, tachycardia, no gallops, no rubs Abdomen: Soft, nontender, no organomegaly, bowel sounds present, morbidly obese Neuro: No focal deficits, no facial deformity, AO x3, power 5/5 in all limbs Data 08/23/22 04:50 08/23/22 04:50 Micro: Microbiology 08/22/22 23:59 Legionella Urinary Antigen - Final Unknown Source 08/22/22 16:29 Blood Culture - Preliminary Blood SPECIMEN COLLECTED 08/22/22 16:20 Blood Culture - Preliminary Blood SPECIMEN COLLECTED A&P Assessment and plan (1) Acute respiratory failure with hypoxia: Most likely secondary to COPD exacerbation. Awaiting sputum culture, blood culture. Urine Legionella negative. D-dimer elevated. CTA negative for pulm embolism or consolidation. For now continue empiric IV ceftriaxone and oral azithromycin. Awaiting MRSA swab. Ipratropium, Xopenex every 6 hours, budesonide twice daily. Continue with dexamethasone 6 mg IV daily. Will try for quick taper to home dose of prednisone 5 mg daily. Will await echocardiogram results. Oral 20 mg Lasix one-time with concerns for pulmonary hypertension. Monitor potassium. Oxygen supplementation keeping saturation over 88%. BiPAP as needed. (2) Acute exacerbation of chronic obstructive airways disease: (3) Nicotine addiction: Nicotine patch. Plan Full code. Cardiac diet. Heparin for DVT prophylaxis. Protonix for PUD prophylaxis. Attestations Medical Necessity Statement*: Requires further hospitalization for management of acute hypoxic respiratory failure in setting of COPD exacerbation Coding Level of Care Code Acute Code for [employer] Diagnoses Acute respiratory failure with hypoxia J96.01 Acute exacerbation of chronic obstructive airways disease J44.1 Nicotine addiction F17.200
--- NOTE | 2022-08-23 11:19 | PC.CHAP ---
Pastoral Care Encounter/Spiritual Assessment Type of Contact [] Declined template clerk visit [] Patient/Family/Request visit [] Outpatient visit [] Follow-up visit [] Physician referral [] Code/Alert [x] Routine visit [] Staff referral [] Actively dying [] Patient sleeping [] Family support [] [] Out of room [] Palliative care [] [x] Receiving care in room [] Pre-surgical visit [] Trauma [] Long length of stay [] ICU visit [] Other: Relational/Emotional Strength [x] Patient feels connected with others/family/visitors/staff [] Distress [] Loneliness/isolation [] Abandonment Spirituality of Patient [x] Person of Nazia [] Attends Gnosticist of their Nazia [x] Believes in Prayer [] Reads Bible or Jew materials [] There are Spiritual issues to be addressed [employer]isher Interventions [x] Prayer [x] Active listening [x] Non-anxious presence [x] Spiritual/emotional support [] Crisis/trauma care [x] Spiritual counseling [] Bereavement support [] Provided bereavement packet [] Provided Bible/devotional materials [] Provided toy/stuffed animal, coloring book to patient or family member [] Provided Communion [] Anointing/[place] [] Salvation [x] Completed spiritual assessment [] Other: Impact on Illness or Injury [] Angry [] Fearful [] Anxious [] Often cries [] Exhaustion [] Unable to work [] Unable to attend restorationism [] Unable to walk/stand [] Unable to read [] Unable to drive [] Unable to eat/drink [] Unable to sleep [] Unable to be with family [] Patient intubated [] Other: Summary checking amoune sysrem waiting on doctors tests has a good attitude +1 well go home Time spent with patient 10 mins
[2022-08-23] MEDS: FUROsemide 20 mg Tablet PO (12:01)
[2022-08-23] MEDS: cefTRIAXone 1,000 MG in sodium chloride 0.9% (plus) 50 ML 100 MG IV (17:33)
--- NOTE | 2022-08-23 18:04 | USCV_ITS ---
Ebonie Damon Age: 61 Gender: F : 1960 Exam Date: 08/23/2022 03:00 Ordering Phys: Mario Michaels MD Technologist: ANTOINE [place] [facility] [place] Indication: COPD, HTN, No history of cardiac intervention per patient. BP: 155 / 112 HR: 90 Rhythm: Sinus Technical Quality: Fair MEASUREMENTS (Male / Female) Normal Values 2D ECHO LV Diastolic Diameter PLAX 3.0 cm 4.2 - 5.9 / 3.9 - 5.3 cm LV Systolic Diameter PLAX 1.9 cm IVS Diastolic Thickness 1.0 cm 0.6 - 1.0 / 0.6 - 0.9 cm IVS Systolic Thickness 1.3 cm LVPW Diastolic Thickness 1.3 cm 0.6 - 1.0 / 0.6 - 0.9 cm LVPW Systolic Thickness 1.1 cm LVOT Diameter 1.7 cm LV Ejection Fraction 2D Teich 69.0 % LV Ejection Fraction MOD 2C 62.9 % LV Ejection Fraction 2C AL 62.3 % LA Diameter 2.8 cm LA Width 2.9 cm LA Height 3.8 cm RA Width 2.0 cm RA Height 2.9 cm Aorta at Sinotubular Diameter 2.4 cm IVC Diameter 1.6 cm M-MODE Aortic Annulus Diameter 2.7 cm LA Ao Ratio MM 1.0 MV E Point Septal Separation 0.3 cm DOPPLER AV Peak Velocity 89.0 cm/s LVOT Peak Velocity 82.0 cm/s AV Area Cont Eq vti 2.0 cm squared AV Area Cont Eq pk 2.1 cm squared MV Peak Velocity 105.0 cm/s MV Area PHT 3.3 cm squared Mitral E to A Ratio 0.7 MV E' Velocity 40.5 cm/s Mitral E to MV E' Ratio 11.7 Mitral E to LV E' Lateral Ratio 10.7 Mitral E to LV E' Septal Ratio 13.2 TV Peak E Velocity 50.0 cm/s PV Peak Velocity 95.0 cm/s RV Acceleration Time 0.1 s RV Ejection Time 0.3 s RV AcT/ET 0.3 FINDINGS Left Ventricle Normal left ventricular size, systolic function and wall thickness, with no regional wall motion abnormalities. Left ventricular ejection fraction is estimated at 65 %. Grade I diastolic dysfunction (abnormal relaxation filling pattern), normal to mildly elevated filling pressures. Right Ventricle Normal right ventricular size and systolic function. RVSP could not be calculated due to incomplete tricuspid regurgitation velocity profile. Right Atrium Normal right atrial size. Left Atrium Normal left atrial size. Mitral Valve Structurally normal mitral valve. No mitral valve stenosis. No mitral valve regurgitation. Aortic Valve Structurally normal trileaflet aortic valve. No aortic valve stenosis. No aortic valve regurgitation. Tricuspid Valve Structurally normal tricuspid valve. No tricuspid valve stenosis. Trace tricuspid valve regurgitation. Pulmonic Valve Structurally normal pulmonic valve. No pulmonary valve stenosis. Trace pulmonary valve regurgitation. Pericardium No pericardial effusion. Aorta Normal size aortic root and proximal ascending aorta. IVC Normal IVC dimension with >50% respiratory change of the inferior vena cava. CONCLUSIONS 1. Normal left ventricular size, systolic function and wall thickness, with no regional wall motion abnormalities. Left ventricular ejection fraction is estimated at 65 %. Grade I diastolic dysfunction (abnormal relaxation filling pattern), normal to mildly elevated filling pressures. 2. No significant valvular abnormality. 3. No prior similar studies to compare. Rica Castillo MD (Electronically Signed) Final Date: 23 August 2022 12:21 S
[2022-08-23] MEDS: pantoprazole 40 mg SDV IVP (21:31)
[2022-08-23] MEDS: sertraline 50 mg Tablet PO (21:31)
[2022-08-24] VITALS (12 sets, daily range): BP systolic 126–153; BP diastolic 73–83; PULSE 78–92; RESP 16–25; TEMP 36.4–36.6; O2SAT 90–96
[2022-08-24] MEDS: dexamethasone 10 mg/mL INJ 6 MG IVP
[2022-08-24] MEDS: ipratropium 0.5 mg/2.5 mL Neb INHALATION ×4 (02:30→20:27)
[2022-08-24] MEDS: levalbuterol 0.63 mg/3 mL Neb INHALATION ×4 (02:31→20:27)
[2022-08-24 04:47] LABS: Basophils % 0.1 %; Hematocrit 42.5 % (37.0-47.0); Hemoglobin 13.8 g/dL (11.5-15.3); Lymphocytes # 0.6 10^3/uL (0.8-4.8); Lymphocytes % 8.3 %; Mean Corpuscular HGB Conc 32.5 g/dL (30.0-36.0); Mean Corpuscular Hemoglobin 29.7 pg (28.0-34.0); Mean Corpuscular Volume 91.4 fl (81-99); Mean Platelet Volume 11.1 fL (7.4-10.4); Monocytes # 0.5 10^3/uL (0.2-0.9); Monocytes % 6.2 %; Neutrophils # 6.43 10^3/uL (1.8-7.7); Nucleated Red Blood Cells % 0 %; Platelet Count 186 10^3/cmm (130-400); Red Blood Count 4.65 10^6/uL (4.1-5.3); Red Cell Distribution Width 13.4 % (12.1-15.1); White Blood Count 7.6 10^3/uL (4.0-10.0)
[2022-08-24 05:08] LABS: Alanine Aminotransferase 77 U/L (0-33); Albumin Level 3.4 g/dL (3.5-5.2); Alkaline Phosphatase 149 U/L (35-105); Anion Gap 15.1 (5-19); Aspartate Amino Transferase 70 U/L (0-32); Blood Urea Nitrogen 15 mg/dL (8-23); Calcium 8.7 mg/dL (8.5-10.5); Carbon Dioxide 30 mmol/L (22-29); Chloride 98 mmol/L (98-107); Globulin 2.9 g/dL (1.3-4.6); Glomerular Filtration Rate 125.4 mL/min (90-130); Glucose 145 mg/dL (65-115); Osmolality Calculated 291 mOsm/kg (285-295); Potassium 4.1 mmol/L (3.5-5.1); Sodium 139 mmol/L (136-145); Total Bilirubin 0.2 mg/dL (0.15-1.2); Total Protein 6.3 g/dL (6.6-8.7)
[2022-08-24] MEDS: budesonide 0.5 mg/2 mL Neb INHALATION ×2 (07:15→20:27)
[2022-08-24] MEDS: heparin 5,000 unit/mL INJ 1 mL 5000 UNIT SUBCUT ×2 (08:45→20:34)
[2022-08-24] MEDS: azithromycin 250 mg Tablet 500 MG PO (08:45)
[2022-08-24] MEDS: ipratropium-albuterol 3 mL Neb INHALATION (10:25)
[2022-08-24] MEDS: methylPREDNISolone sod succ 40 mg SDV IVP ×3 (10:54→22:16)
[2022-08-24] MEDS: benzonatate 100 mg Capsule 200 MG PO ×2 (15:11→20:34)
--- NOTE | 2022-08-24 15:17 | P.PN_ITS ---
Subjective Subjective: Morning on examination patient Raymond states she is feeling out of breath. Having good difficulty to breathe. Saturating 92% on 3 L oxygen supplementation but having bouts of cough. Seen with family member at bedside. Patient states she is feeling harder than what she breathes at home usually. Denies any nausea, vomiting, headache. Otherwise has remained hemodynamically stable and afebrile. Patient was transitioned over to BiPAP after which she started feeling better. Blood work appreciated for a stable CBC and BMP, LFTs slightly worsening with worsening of AST and ALT along with stable elevated alkaline phosphatase. Vitals/I&O/Wt Last Vital Signs Temp 97.6 F 08/24/22 12:00 Pulse 78 08/24/22 13:19 Resp 21 H 08/24/22 13:19 BP 136/73 08/24/22 12:00 Pulse Ox 96 08/24/22 13:19 O2 Del Method BiPAP 08/24/22 13:19 O2 Flow Rate 2 08/24/22 10:29 FiO2 35 08/24/22 13:19 08/24/22 08/24/22 08/24/22 06:59 14:59 22:59 Intake Total 720 / 720 Output Total 900 / 900 Balance -180 / -180 Weight last 48 hrs Weight 56.88 kg Weight 59.874 kg Physical Exam Narrative: EXAM NARRATIVE: General: No acute distress, AO x3, NC oxygen supplementation, requiring on a BiPAP ventilation, in respiratory distress on ambulation HEENT: PERRLA, pupils bilaterally equal and reactive Chest: Bilateral bronchial breath sounds all over lung fontaine with occasional rhonchi and fine crackles CVS: S1-S2 regular, no murmurs, tachycardia, no gallops, no rubs Abdomen: Soft, nontender, no organomegaly, bowel sounds present, morbidly obese Neuro: No focal deficits, no facial deformity, AO x3, power 5/5 in all limbs Data 08/24/22 04:34 08/24/22 04:34 Micro: Microbiology 08/22/22 16:29 Blood Culture - Preliminary Blood NEGATIVE TO DATE 08/22/22 16:20 Blood Culture - Preliminary Blood NEGATIVE TO DATE 08/22/22 16:58 Gram Stain - Final Sputum - Expectorated Sputum Sputum Culture - Preliminary 08/23/22 00:05 MRSA Culture - Final Nose 08/22/22 17:49 Bacterial Antigens - Final Urine Kidney A&P Assessment and plan (1) Acute respiratory failure with hypoxia: Most likely secondary to COPD exacerbation. Awaiting sputum culture. Blood culture, urine Legionella, bacterial antigen, MRSA swab negative. D-dimer elevated. CTA negative for pulm embolism or consolidation. For now continue empiric IV ceftriaxone and oral azithromycin. Patient continues to have respiratory distress. Change ipratropium, Xopenex every 4 hours, budesonide twice daily. Switch from dexamethasone to Solu-Medrol 40 mg every 6 hourly. Echocardiogram results appreciated for a normal EF of 65% with grade 1 diastolic dysfunction. No concerns for RV dysfunction or cor pulmonale. Tessalon Perles 3 times daily, Robitussin as needed. Oxygen supplementation keeping saturation over 88%. BiPAP as needed. (2) Acute exacerbation of chronic obstructive airways disease: (3) Nicotine addiction: Patient states she does not want nicotine patch. Plan Full code. Cardiac diet. Heparin for DVT prophylaxis. Protonix for PUD prophylaxis. Attestations Medical Necessity Statement*: Requires further hospitalization for management of hypoxic respiratory failure in setting of COPD exacerbation Diagnoses Acute respiratory failure with hypoxia J96.01 Acute exacerbation of chronic obstructive airways disease J44.1 Nicotine addiction F17.200
[2022-08-24 15:50] LABS: ABG PCO2 51.1 mmHg (35-45); ABG PH Result 7.43 (7.35-7.45); Alveolar-Arterial Oxygen Gradi 13.6 mmHg (5-10); Arterial Blood Gas Hematocrit 45.4 % (37-47); Base Excess ABG 7.5 mmol/L (-2.0-2.0); Blood Gas Allen Test Pos; Blood Gas Sample Site Radial, left; Blood Gas Sample Type Arterial; HCO3 ABG 33.5 mmol/L (22-26); HGB O2 Sat 95.9 % (95-100); Ionized Calcium Level - ABG 1.2 mmol/L (1.1-1.4); Methemoglobin 0.6 % (0.4-1.5); Oxygen Device BIPAP; Oxygen Saturation ABG 97.4; PO2 ABG 81.4 mmHg (80.0-100.0); Potassium Level - ABG 3.8 mmol/L (3.5-5.0); Total Hemoglobin 14.8 g/dL (12-16)
[2022-08-24] MEDS: cefTRIAXone 1,000 MG in sodium chloride 0.9% (plus) 50 ML 100 MG IV (17:50)
[2022-08-24] MEDS: water for injection-sterile 10 ML (17:50)
[2022-08-24] MEDS: pantoprazole 40 mg SDV IVP (20:34)
[2022-08-24] MEDS: sertraline 50 mg Tablet PO (20:34)
[2022-08-24] MEDS: water for injection-sterile 10 ML 3 ML (22:17)
[2022-08-25] VITALS (13 sets, daily range): BP systolic 140–169; BP diastolic 70–93; PULSE 68–84; RESP 16–20; TEMP 36.4–37; O2SAT 91–97
[2022-08-25] MEDS: ipratropium 0.5 mg/2.5 mL Neb INHALATION ×6 (02:00→21:31)
[2022-08-25] MEDS: levalbuterol 0.63 mg/3 mL Neb INHALATION ×6 (02:00→21:31)
[2022-08-25] MEDS: dexamethasone 10 mg/mL INJ 6 MG IVP ×4 (04:54→23:47)
[2022-08-25 06:29] LABS: Basophils % 0.3 %; Hematocrit 43.6 % (37.0-47.0); Hemoglobin 14.2 g/dL (11.5-15.3); Lymphocytes # 0.9 10^3/uL (0.8-4.8); Lymphocytes % 13.4 %; Mean Corpuscular HGB Conc 32.6 g/dL (30.0-36.0); Mean Corpuscular Hemoglobin 29.3 pg (28.0-34.0); Mean Corpuscular Volume 89.9 fl (81-99); Mean Platelet Volume 11.3 fL (7.4-10.4); Monocytes # 0.4 10^3/uL (0.2-0.9); Monocytes % 6.6 %; Neutrophils # 5.14 10^3/uL (1.8-7.7); Neutrophils % 77.4 %; Nucleated Red Blood Cells % 0 %; Platelet Count 206 10^3/cmm (130-400); Red Blood Count 4.85 10^6/uL (4.1-5.3); Red Cell Distribution Width 13.2 % (12.1-15.1); White Blood Count 6.6 10^3/uL (4.0-10.0)
[2022-08-25 06:50] LABS: Alanine Aminotransferase 59 U/L (0-33); Albumin Level 3.6 g/dL (3.5-5.2); Alkaline Phosphatase 150 U/L (35-105); Anion Gap 13.2 (5-19); Aspartate Amino Transferase 25 U/L (0-32); Blood Urea Nitrogen 20 mg/dL (8-23); Calcium 8.8 mg/dL (8.5-10.5); Carbon Dioxide 32 mmol/L (22-29); Chloride 100 mmol/L (98-107); Globulin 2.6 g/dL (1.3-4.6); Glomerular Filtration Rate 101.6 mL/min (90-130); Glucose 137 mg/dL (65-115); Osmolality Calculated 297 mOsm/kg (285-295); Potassium 4.2 mmol/L (3.5-5.1); Sodium 141 mmol/L (136-145); Total Bilirubin 0.2 mg/dL (0.15-1.2); Total Protein 6.2 g/dL (6.6-8.7)
[2022-08-25] MEDS: budesonide 0.5 mg/2 mL Neb INHALATION ×2 (08:16→21:31)
[2022-08-25] MEDS: azithromycin 250 mg Tablet 500 MG PO (08:51)
[2022-08-25] MEDS: benzonatate 100 mg Capsule 200 MG PO ×3 (08:51→20:09)
[2022-08-25] MEDS: heparin 5,000 unit/mL INJ 1 mL 5000 UNIT SUBCUT ×2 (08:52→20:09)
--- NOTE | 2022-08-25 15:17 | PM.PN ---
Subjective Subjective: Today morning patient seen sitting up in bed on nasal cannula. Overnight patient has remained on BiPAP. Continues to remain on 2 L currently. States feeling better. Complaining of having some tremors. Patient continues to decline nicotine patch or gums. Denies any nausea, vomiting, headache. Vitals/I&O/Wt Last Vital Signs Temp 97.7 F 08/25/22 15:14 Pulse 79 08/25/22 15:14 Resp 18 08/25/22 15:14 BP 143/83 08/25/22 15:14 Pulse Ox 91 08/25/22 15:14 O2 Del Method Nasal Cannula 08/25/22 15:14 O2 Flow Rate 2 08/25/22 12:29 FiO2 30 08/25/22 08:17 08/25/22 08/25/22 08/25/22 06:59 14:59 22:59 Intake Total 120 / 1390 960 / 960 Output Total 900 / 900 Balance 120 / 490 60 / 60 Weight last 48 hrs Weight 55.293 kg Weight 56.88 kg Physical Exam Narrative: EXAM NARRATIVE: General: No acute distress, AO x3, NC oxygen supplementation, requiring on a BiPAP ventilation, in respiratory distress on ambulation HEENT: PERRLA, pupils bilaterally equal and reactive Chest: Bilateral bronchial breath sounds all over lung fontaine with occasional rhonchi and fine crackles CVS: S1-S2 regular, no murmurs, tachycardia, no gallops, no rubs Abdomen: Soft, nontender, no organomegaly, bowel sounds present, morbidly obese Neuro: No focal deficits, no facial deformity, AO x3, power 5/5 in all limbs Data 08/25/22 05:48 08/25/22 05:48 Micro: Microbiology 08/22/22 16:58 Gram Stain - Final Sputum - Expectorated Sputum Sputum Culture - Final Haemophilus haemolyticus A&P Assessment and plan (1) Acute respiratory failure with hypoxia: Most likely secondary to COPD exacerbation secondary to haemophilus bronchitis. Sputum culture growing haemophilus. Blood cultures negative. Continue with IV ceftriaxone. Patient continues to have respiratory distress. Continue with ipratropium, Xopenex every 4 hours, budesonide twice daily. Wean dexamethasone to 6 mg IV every 8 hourly. Solu-Medrol not available in hospital. Echocardiogram results appreciated for a normal EF of 65% with grade 1 diastolic dysfunction. No concerns for RV dysfunction or cor pulmonale. Tessalon Perles 3 times daily, Robitussin as needed. Oxygen supplementation keeping saturation over 88%. BiPAP as needed. (2) Haemophilus influenzae infection: (3) Acute exacerbation of chronic obstructive airways disease: (4) Nicotine addiction: Patient states she does not want nicotine patch. Plan Full code. Cardiac diet. Heparin for DVT prophylaxis. Protonix for PUD prophylaxis. Attestations Medical Necessity Statement*: Requires further hospitalization for management of COPD exacerbation in setting of haemophilus influenza infection Diagnoses Acute respiratory failure with hypoxia J96.01 Haemophilus influenzae infection A49.2 Acute exacerbation of chronic obstructive airways disease J44.1 Nicotine addiction F17.200
[2022-08-25] MEDS: cefTRIAXone 1,000 MG in sodium chloride 0.9% (plus) 50 ML 100 MG IV (17:14)
[2022-08-25] MEDS: pantoprazole 40 mg SDV IVP (20:08)
[2022-08-25] MEDS: sertraline 50 mg Tablet PO (20:09)
[2022-08-26] VITALS (13 sets, daily range): BP systolic 138–168; BP diastolic 72–88; PULSE 60–90; RESP 16–20; TEMP 36.4–37.1; O2SAT 90–98
[2022-08-26] MEDS: ipratropium 0.5 mg/2.5 mL Neb INHALATION ×5 (00:58→15:25)
[2022-08-26] MEDS: levalbuterol 0.63 mg/3 mL Neb INHALATION ×6 (00:58→21:29)
[2022-08-26 04:01] LABS: Hematocrit 45.2 % (37.0-47.0); Hemoglobin 14.5 g/dL (11.5-15.3); Mean Corpuscular HGB Conc 32.1 g/dL (30.0-36.0); Mean Corpuscular Hemoglobin 28.9 pg (28.0-34.0); Mean Platelet Volume 11.1 fL (7.4-10.4); Platelet Count 215 10^3/cmm (130-400); Red Blood Count 5.02 10^6/uL (4.1-5.3); Red Cell Distribution Width 13.1 % (12.1-15.1); White Blood Count 9.3 10^3/uL (4.0-10.0)
[2022-08-26 04:18] LABS: Alanine Aminotransferase 43 U/L (0-33); Albumin Level 3.2 g/dL (3.5-5.2); Alkaline Phosphatase 142 U/L (35-105); Anion Gap 12.5 (5-19); Aspartate Amino Transferase 14 U/L (0-32); Blood Urea Nitrogen 23 mg/dL (8-23); Calcium 8.8 mg/dL (8.5-10.5); Carbon Dioxide 31 mmol/L (22-29); Chloride 103 mmol/L (98-107); Globulin 2.7 g/dL (1.3-4.6); Glomerular Filtration Rate 125.4 mL/min (90-130); Glucose 141 mg/dL (65-115); Osmolality Calculated 300 mOsm/kg (285-295); Potassium 4.5 mmol/L (3.5-5.1); Sodium 142 mmol/L (136-145); Total Bilirubin 0.2 mg/dL (0.15-1.2); Total Protein 5.9 g/dL (6.6-8.7)
[2022-08-26 05:01] LABS: Total Cells Counted 100 (0-100)
[2022-08-26 05:05] LABS: Absolute Segmented Neutrophil 7.4 10/cmm (1.6-7.1); Lymphocytes 8 %; Monocytes Absolute 0.6 10^3/cmm (0.1-0.6); Segmented Neutrophils 80 %
[2022-08-26 05:06] LABS: Eosinophils 0 %; Lymphocytes Absolute 0.7 10^3/cmm (1.2-3.4)
[2022-08-26 05:07] LABS: Absolute Neutrophil 7.4 10^3/cmm (1.4-6.5); Pathology Refferal Yes; Platelet Estimate Normal (Normal)
[2022-08-26 05:08] LABS: Spherocytes 1+; Toxic Granulation 1+
[2022-08-26] MEDS: budesonide 0.5 mg/2 mL Neb INHALATION ×2 (07:22→21:29)
[2022-08-26] MEDS: dexamethasone 10 mg/mL INJ 6 MG IVP ×2 (08:16→17:35)
[2022-08-26] MEDS: benzonatate 100 mg Capsule 200 MG PO ×3 (08:16→21:11)
[2022-08-26] MEDS: heparin 5,000 unit/mL INJ 1 mL 5000 UNIT SUBCUT ×2 (08:20→21:11)
[2022-08-26] MEDS: amlodipine 5 mg Tablet PO (14:17)
--- NOTE | 2022-08-26 14:20 | PM.PN ---
Subjective Subjective: No acute events overnight. States she is feeling better. Denies any nausea, vomiting, headache. Has remained afebrile. On 1 L of oxygen supplementation. Blood pressure slightly elevated. Having mild tremors. We discussed tremors might be because of steroid use along with patient withdrawing from nicotine. Patient does not want to use nicotine at all currently. Vitals/I&O/Wt Last Vital Signs Temp 97.8 F 08/26/22 11:11 Pulse 77 08/26/22 12:12 Resp 20 H 08/26/22 12:12 BP 150/76 08/26/22 11:11 Pulse Ox 94 08/26/22 12:12 O2 Del Method Nasal Cannula 08/26/22 12:12 O2 Flow Rate 1 08/26/22 12:12 FiO2 30 08/25/22 08:17 08/25/22 08/26/22 08/26/22 22:59 06:59 14:59 Intake Total 650 / 1610 240 / 1850 1440 / 1440 Balance 650 / 710 240 / 950 1440 / 1440 Weight last 48 hrs Weight 54.794 kg Weight 55.293 kg Physical Exam Narrative: EXAM NARRATIVE: General: No acute distress, AO x3, NC oxygen supplementation, requiring on a BiPAP ventilation, in respiratory distress on ambulation HEENT: PERRLA, pupils bilaterally equal and reactive Chest: Bilateral bronchial breath sounds all over lung fontaine with occasional rhonchi and fine crackles CVS: S1-S2 regular, no murmurs, tachycardia, no gallops, no rubs Abdomen: Soft, nontender, no organomegaly, bowel sounds present, morbidly obese Neuro: No focal deficits, no facial deformity, AO x3, power 5/5 in all limbs Data 08/26/22 03:34 08/26/22 03:34 Micro: Microbiology 08/22/22 16:58 Gram Stain - Final Sputum - Expectorated Sputum Sputum Culture - Final Haemophilus haemolyticus A&P Assessment and plan (1) Acute respiratory failure with hypoxia: Most likely secondary to COPD exacerbation secondary to haemophilus bronchitis. Sputum culture growing haemophilus. Blood cultures negative. Continue with IV ceftriaxone. Patient continues to have respiratory distress. Continue with ipratropium, Xopenex every 4 hours, budesonide twice daily. Wean dexamethasone to 6 mg IV every 8 hourly. Solu-Medrol not available in hospital. Echocardiogram results appreciated for a normal EF of 65% with grade 1 diastolic dysfunction. No concerns for RV dysfunction or cor pulmonale. Tessalon Perles 3 times daily, Robitussin as needed. Oxygen supplementation keeping saturation over 88%. BiPAP as needed. (2) Haemophilus influenzae infection: (3) Acute exacerbation of chronic obstructive airways disease: (4) Nicotine addiction: Patient states she does not want nicotine patch. Plan Plan for the day: Continue with IV ceftriaxone for haemophilus. We will plan to treat overall for 5 days. Continue with nebulization treatment with ipratropium and Xopenex every 4 hour, Pulmicort twice daily. Wean dexamethasone to 6 mg every 12 hourly. Most likely patient will be discharged on slow taper. Goal blood pressure less than 140/90 mmHg. Add amlodipine 5 mg oral daily. Keep oxygen saturation over 88 %. Wean oxygen supplementation accordingly. BiPAP as needed. Full code Cardiac diet. Heparin for DVT prophylaxis. Protonix for PUD prophylaxis. Attestations Medical Necessity Statement*: Requires further hospitalization for management of COPD exacerbation in setting of haemophilus infection while steroid is tapered. Diagnoses Acute respiratory failure with hypoxia J96.01 Haemophilus influenzae infection A49.2 Acute exacerbation of chronic obstructive airways disease J44.1 Nicotine addiction F17.200
[2022-08-26] MEDS: cefTRIAXone 1,000 MG in sodium chloride 0.9% (plus) 50 ML 100 MG IV (17:35)
[2022-08-26] MEDS: sertraline 50 mg Tablet PO (21:11)
[2022-08-26] MEDS: pantoprazole 40 mg SDV IVP (21:38)
[2022-08-27] VITALS (11 sets, daily range): BP systolic 152–159; BP diastolic 75–84; PULSE 66–83; RESP 16–22; TEMP 36.4; O2SAT 88–94
[2022-08-27] MEDS: levalbuterol 0.63 mg/3 mL Neb INHALATION ×4 (00:35→11:20)
[2022-08-27] MEDS: ipratropium 0.5 mg/2.5 mL Neb INHALATION ×4 (00:35→11:20)
[2022-08-27 04:56] LABS: Basophils # 0.1 10^3/uL (0.0-0.1); Basophils % 0.8 %; Eosinophils % 0.1 %; Hematocrit 43.2 % (37.0-47.0); Hemoglobin 14.3 g/dL (11.5-15.3); Lymphocytes # 1.6 10^3/uL (0.8-4.8); Lymphocytes % 12.4 %; Mean Corpuscular HGB Conc 33.1 g/dL (30.0-36.0); Mean Corpuscular Hemoglobin 29.2 pg (28.0-34.0); Mean Corpuscular Volume 88.3 fl (81-99); Mean Platelet Volume 10.8 fL (7.4-10.4); Monocytes # 1.1 10^3/uL (0.2-0.9); Monocytes % 8.8 %; Neutrophils # 8.78 10^3/uL (1.8-7.7); Neutrophils % 67.9 %; Nucleated Red Blood Cells % 0 %; Platelet Count 226 10^3/cmm (130-400); Red Blood Count 4.89 10^6/uL (4.1-5.3); Red Cell Distribution Width 13.2 % (12.1-15.1); White Blood Count 12.9 10^3/uL (4.0-10.0)
[2022-08-27 04:59] LABS: Slide Review Slide Review Perform
[2022-08-27 05:44] LABS: Alanine Aminotransferase 39 U/L (0-33); Albumin Level 3.2 g/dL (3.5-5.2); Alkaline Phosphatase 127 U/L (35-105); Anion Gap 15.1 (5-19); Aspartate Amino Transferase 22 U/L (0-32); Blood Urea Nitrogen 24 mg/dL (8-23); Calcium 8.2 mg/dL (8.5-10.5); Carbon Dioxide 27 mmol/L (22-29); Chloride 101 mmol/L (98-107); Globulin 1.9 g/dL (1.3-4.6); Glomerular Filtration Rate 101.6 mL/min (90-130); Glucose 113 mg/dL (65-115); Osmolality Calculated 293 mOsm/kg (285-295); Potassium 4.1 mmol/L (3.5-5.1); Sodium 139 mmol/L (136-145); Total Bilirubin 0.2 mg/dL (0.15-1.2); Total Protein 5.1 g/dL (6.6-8.7)
[2022-08-27] MEDS: dexamethasone 10 mg/mL INJ 6 MG IVP (06:16)
[2022-08-27] MEDS: budesonide 0.5 mg/2 mL Neb INHALATION (08:01)
[2022-08-27] MEDS: benzonatate 100 mg Capsule 200 MG PO ×2 (08:20→14:35)
[2022-08-27] MEDS: heparin 5,000 unit/mL INJ 1 mL 5000 UNIT SUBCUT (08:21)
[2022-08-27] MEDS: amlodipine 5 mg Tablet PO (08:21)
--- NOTE | 2022-08-27 14:32 | PM.DCS ---
Discharge Providers Date of Admission: 08/22/22 20:01 Date of Discharge: August 27, 2022 Attending Provider at Admission: Mario Michaels MD Attending Provider at Discharge: Sean Altamirano Primary Care Provider: Teodoro Peter DO Diagnoses at Discharge Discharge Diagnosis (1) Acute respiratory failure with hypoxia: Status: Acute (2) Haemophilus influenzae infection: Status: Acute (3) Acute exacerbation of chronic obstructive airways disease: Status: Acute (4) Nicotine addiction: Status: Acute Reason for Visit Reason for Visit: SOB, High HR Hospital Course Hospital Course Pleasant 61-year-old lady with COPD, worsened shortness of breathing 3 to 4 days prior to admission, was admitted for assessment management of suspected COPD exacerbation, with sputum culture eventually growing haemophilus hemolyticus as suspected causative agent. She was treated with ceftriaxone in the hospital, IV steroids, breathing treatments, oxygen support. Initially required transient BiPAP support as well due to acute respiratory failure. This has gradually resolved, today she reports she is feeling significantly better and wants to discharge home. Her oxygenation has improved and she is weaned off oxygen to room air, does not qualify for oxygen on home O2 study. She does still have mild wheeze particularly in right lower lung, somewhat overall diminished lung sounds, but she states this is chronic. She is asked to follow-up with pulmonology with completion of antibiotic course, steroid taper, then resume prednisone 5 mg. Additional refills given for albuterol nebulization at home. She and her state he will be watching to make sure she continues recovering, they know to return in case of any worsening or new concerning symptoms. Discussed smoking cessation. Please revisit. Additionally in hospital she was started on amlodipine for hypertension. She is asked to monitor blood pressures, please follow-up and help her optimize control. Physical Exam Narrative: at bedside. Const: COMMON NORMALS: patient oriented x3 and alert GENERAL APPEARANCE: cooperative ORIENTATION/CONSCIOUSNESS: Yes awake HENMT: COMMON NORMALS: oropharynx normal Neck/C-Spine: COMMON NORMALS: no JVD Resp: COMMON NORMALS: normal respiratory effort EFFORT & INSPECTION: Yes able to speak in complete sentences AUSCULTATION: diminished lung sounds OTHER: Minimal wheeze, RLL Cardio: COMMON NORMALS: no JVD, regular rhythm, S1 normal heart sound present, S2 normal heart sound present and No murmurs present (Cardio) RHYTHM: regular rhythm HEART SOUNDS: S1 normal heart sound present and S2 normal heart sound present GI: COMMON NORMALS: Normal to inspection, nondistended, normoactive bowel sounds present, Soft to palpation and non-tender PALPATION: Yes Soft to palpation Extremity: COMMON NORMALS: no joint enlargement and no pedal edema Neuro: COMMON NORMALS: patient oriented x3 and moves all extremities SENSORIUM/ORIENTATION: Yes alert Skin: COMMON NORMALS: no rashes or lesions noted GENERAL SKIN EXAM: no rashes or lesions noted Discharge Data Studies Completed and Pending Completed Studies During Hospitalization Category Date Time Status CTA chest [CT angio chest PE protcl [id number]] Stat Cat Scan 08/22/22 18:04 Completed XR chest 1V portable [id number] Stat Exams 08/22/22 16:14 Completed CV. echo complete* [id number] Routine Ultrasound 08/23/22 18:04 Completed Pending at discharge Category Date Time Status Blood Culture Stat Lab 08/22/22 16:29 Results Radiology Impressions Chest X-Ray 08/22/22 16:14 IMPRESSION: 1. No acute cardiopulmonary finding. Pulmonary hyperinflation. Chest CTA 08/22/22 18:04 IMPRESSION: 1. No pulmonary embolus identified. 2. There are new nodular basilar predominant infiltrates suspicious for possible pneumonia. Recommend clinical correlation and follow-up. 3. Spiculated nodule in the left upper lobe and additional left lower lobe nodule are unchanged. 4. Adenopathy in the right hilum [id number]-left is indeterminate. Correlate clinically. COMMENTS: In the absence of a history or active diagnosis of lung cancer, it is recommended that this patient with emphysema be evaluated for enrollment in a low dose CT lung cancer screening program. Laboratory Results WBC 12.9 10^3/uL (4.0-10.0) H 08/27/22 04:28 RBC 4.89 10^6/uL (4.1-5.3) 08/27/22 04:28 Hgb 14.3 g/dL (11.5-15.3) 08/27/22 04:28 Hct 43.2 % (37.0-47.0) 08/27/22 04:28 MCV 88.3 fl (81-99) 08/27/22 04:28 MCH 29.2 pg (28.0-34.0) 08/27/22 04:28 MCHC 33.1 g/dL (30.0-36.0) 08/27/22 04:28 RDW 13.2 % (12.1-15.1) 08/27/22 04:28 Plt Count 226 10^3/cmm (130-400) 08/27/22 04:28 MPV 10.8 fL (7.4-10.4) H 08/27/22 04:28 Neut % (Auto) 67.9 % 08/27/22 04:28 Lymph % (Auto) 12.4 % 08/27/22 04:28 Ransom % (Auto) 8.8 % 08/27/22 04:28 Eos % (Auto) 0.1 % 08/27/22 04:28 Baso % (Auto) 0.8 % 08/27/22 04:28 Neut # (Auto) 8.78 10^3/uL (1.8-7.7) H 08/27/22 04:28 Lymph # (Auto) 1.6 10^3/uL (0.8-4.8) 08/27/22 04:28 Ransom # (Auto) 1.1 10^3/uL (0.2-0.9) H 08/27/22 04:28 Eos # (Auto) 0.0 10^3/uL (0.0-0.8) 08/27/22 04:28 Baso # (Auto) 0.1 10^3/uL (0.0-0.1) 08/27/22 04:28 Nucleated RBC % (auto) 0 % 08/27/22 04:28 Total Counted 100 (0-100) 08/26/22 03:34 Atypical Lymphs % 0.0 % (0-5) 08/26/22 03:34 Absolute Neutrophils 7.4 10^3/cmm (1.4-6.5) H 08/26/22 03:34 Segmented Neutrophils 80 % 08/26/22 03:34 Abs Segm Neuts (Man) 7.4 10/cmm (1.6-7.1) H 08/26/22 03:34 Band Neutrophils 0.0 % 08/26/22 03:34 Abs Band Neuts (Man) 0.0 10^3/cmm (0.0-1.2) 08/26/22 03:34 Absolute Lymphocytes 0.7 10^3/cmm (1.2-3.4) L 08/26/22 03:34 Lymphocytes (Manual) 8 % 08/26/22 03:34 Monocytes (Manual) 6.0 % 08/26/22 03:34 Absolute Monocytes 0.6 10^3/cmm (0.1-0.6) 08/26/22 03:34 Eosinophils (Manual) 0 % 08/26/22 03:34 Absolute Eosinophils 0.0 10^3/cmm (0.0-0.7) 08/26/22 03:34 Basophils (Manual) 0.0 % 08/26/22 03:34 Absolute Basophils 0.0 10^3/cmm (0.0-0.2) 08/26/22 03:34 Metamyelocytes 3.0 % 08/26/22 03:34 Myelocytes 3.0 % 08/26/22 03:34 Nucleated RBCs # 0.0 /100WBC 08/27/22 04:28 Pathologist Review Yes 08/26/22 03:34 Toxic Granulation 1+ H 08/26/22 03:34 Platelet Estimate Normal (Normal) 08/26/22 03:34 Spherocytes 1+ 08/26/22 03:34 D-Dimer 1.18 ug/mIFEU (0-0.59) H 08/22/22 16:20 Specimen Type Arterial 08/24/22 15:36 Sample Site Radial, left 08/24/22 15:36 ABG pH 7.43 (7.35-7.45) 08/24/22 15:36 ABG pCO2 51.1 mmHg (35-45) H 08/24/22 15:36 ABG pO2 81.4 mmHg (80.0-100.0) 08/24/22 15:36 ABG HCO3 33.5 mmol/L (22-26) H 08/24/22 15:36 ABG O2 Saturation 97.4 08/24/22 15:36 ABG Base Excess 7.5 mmol/L (-2.0-2.0) H 08/24/22 15:36 Twan Test Pos 08/24/22 15:36 A-a O2 Gradient 13.6 mmHg (5-10) H 08/24/22 15:36 Hematocrit 45.4 % (37-47) 08/24/22 15:36 Hgb O2 Saturation 95.9 % (95-100) 08/24/22 15:36 Carboxyhemoglobin 1.0 %THgb (0.4-20.1) 08/24/22 15:36 Methemoglobin 0.6 % (0.4-1.5) 08/24/22 15:36 Total Hemoglobin 14.8 g/dL (12-16) 08/24/22 15:36 Sodium 140.0 mmol/L (131-143) 08/24/22 15:36 Potassium 3.8 mmol/L (3.5-5.0) 08/24/22 15:36 Glucose 151.0 mg/dL (70-115) H 08/24/22 15:36 Ionized Calcium 1.2 mmol/L (1.1-1.4) 08/24/22 15:36 O2 Delivery Device Bipap 08/24/22 15:36 O2 Liters/Min 2.5 % 08/22/22 16:15 FiO2 35.0 % 08/24/22 15:36 PEEP 7.0 cmH20 08/24/22 15:36 Energy Efficient Site Manager ID Michael 08/24/22 15:36 Sodium 139 mmol/L (136-145) 08/27/22 04:28 Potassium 4.1 mmol/L (3.5-5.1) 08/27/22 04:28 Chloride 101 mmol/L (98-107) 08/27/22 04:28 Carbon Dioxide 27 mmol/L (22-29) 08/27/22 04:28 Anion Gap 15.1 (5-19) 08/27/22 04:28 BUN 24 mg/dL (8-23) H 08/27/22 04:28 Creatinine 0.6 mg/dL (0.5-0.9) 08/27/22 04:28 GFR Calculation 101.6 mL/min (90-130) 08/27/22 04:28 Glucose 113 mg/dL (65-115) 08/27/22 04:28 Estimat Average Glucose 120 08/23/22 04:50 Hemoglobin A1c 5.8 % (4.0-6.0) 08/23/22 04:50 Calculated Osmolality 293 mOsm/kg (285-295) 08/27/22 04:28 Calcium 8.2 mg/dL (8.5-10.5) L 08/27/22 04:28 Phosphorus 2.7 mg/dL (2.5-4.5) 08/23/22 04:50 Magnesium 2.2 mg/dL (1.7-2.3) 08/23/22 04:50 Iron 17 ug/dL (37-145) L 08/22/22 16:20 TIBC 220 mcg/dl 08/22/22 16:20 % Saturation 7.7 % (20-50) L 08/22/22 16:20 Unsat Iron Binding 203 ug/dL (112-347) 08/22/22 16:20 Total Bilirubin 0.2 mg/dL (0.15-1.2) 08/27/22 04:28 AST 22 U/L (0-32) 08/27/22 04:28 ALT 39 U/L (0-33) H 08/27/22 04:28 Alkaline Phosphatase 127 U/L (35-105) H 08/27/22 04:28 NT-Pro-B Natriuret Pep 1822 pg/mL (0-125) H 08/22/22 16:20 Total Protein 5.1 g/dL (6.6-8.7) L 08/27/22 04:28 Albumin 3.2 g/dL (3.5-5.2) L 08/27/22 04:28 Globulin 1.9 g/dL (1.3-4.6) 08/27/22 04:28 Triglycerides 90 mg/dL (0-150) 08/23/22 04:50 Cholesterol 157 mg/dL (0-200) 08/23/22 04:50 LDL Cholesterol, Calc 85 mg/dL (50-129) 08/23/22 04:50 HDL Cholesterol 54 mg/dL (60-100) L 08/23/22 04:50 LDL/HDL Ratio 1.57 RATIO (0.00-3.22) 08/23/22 04:50 Cholesterol/HDL Ratio 2.91 mg/dL (0.0-4.40) 08/23/22 04:50 Vitamin B12 789 pg/mL (232-1245) 08/22/22 16:20 Folate 8.5 ng/mL (4.8-37.3) 08/23/22 04:50 Procalcitonin 0.13 ng/mL (0-0.5) 08/22/22 16:20 TSH 3.35 uIU/mL (0.27-4.20) 08/22/22 16:20 Urine Color Yellow (Yellow) 08/22/22 23:59 Urine Appearance Clear (CLEAR) 08/22/22 23:59 Urine pH 5 (5-7) 08/22/22 23:59 Ur Specific [place] 1.015 (1.005-1.030) 08/22/22 23:59 Urine Protein Neg (Negative) 08/22/22 23:59 Urine Glucose (UA) 4+ (Normal) H 08/22/22 23:59 Urine Ketones 2+ (Negative) H 08/22/22 23:59 Urine Blood Neg (Negative) 08/22/22 23:59 Urine Nitrate Negative (Negative) 08/22/22 23:59 Urine Bilirubin Neg (Negative) 08/22/22 23:59 Urine Urobilinogen Norm mg/dL (Negative) 08/22/22 23:59 Ur Leukocyte Esterase Negative (Negative) 08/22/22 23:59 SARS-CoV-2 Ag (Rapid) negative (Negative) 08/22/22 16:48 Vitals Last Vital Signs Temp 97.6 F 08/27/22 11:41 Pulse 83 08/27/22 11:41 Resp 16 08/27/22 11:41 BP 159/77 08/27/22 11:41 Pulse Ox 90 08/27/22 11:54 O2 Del Method Room Air 08/27/22 11:41 O2 Flow Rate 1 08/26/22 12:12 FiO2 30 08/25/22 08:17 Discharge Plan Discharge Patient Disposition: Home Condition: Stable Prescriptions: New benzonatate 100 mg Capsule 200 mg PO TID PRN (Reason: Cough) Qty: 30 0RF amlodipine 5 mg Tablet 5 mg PO DAILY Qty: 90 0RF cefdinir 300 mg capsule 300 mg PO BID 6 Days Qty: 12 0RF prednisone 20 mg tablet 20 mg PO DAILY Qty: 11 0RF Rx Instructions: 2 tab for 3 days, then 1 tab for 3 days, then 1/2 tab for 4 days. Continued sertraline 50 mg tablet 50 mg PO BEDTIME montelukast 10 mg tablet 10 mg PO DAILY PRN (Reason: Allergy Symptoms) Combivent Respimat 20-100 mcg/actuation mist 1 puff INHALATION QID Trelegy Ellipta 100-62.5-25 mcg blister with device 1 inh INHALATION DAILY Proventil HFA 90 mcg/actuation HFA aerosol inhaler 2 puff inhalation Q4H PRN (Reason: shortness of breath or wheezing) albuterol sulfate 2.5 mg /3 mL (0.083 %) solution for nebulization 2.5 mg inhalation Q4H PRN (Reason: shortness of breath or wheezing) Qty: 180 3RF Held prednisone 5 mg tablet 5 mg PO DAILY 90 Days Qty: 90 1RF Hold Instructions: Resume on 09/06/22. Discharge Orders: Discharge Order (Routine); Ordered 08/27/22 Ordered By: Sean Altamirano Other Ambulatory Orders: DME: Miscellaneous (Order) Location: None Selected Ordered By: Mario Michaels Referrals: Giovanni Blackburn MD [Physician] - 2 weeks (COPD exacerbation) Teodoro Peter DO [Primary Care Provider] - 4-7 days Discharge Diet: Cardiac Discharge Activity: Increase activity as tolerated Patient Instructions: Prednisone (By mouth), Amlodipine (By mouth), Cefdinir (By mouth), How to Stop Smoking (GEN), Cigarette Smoking and Your Health (GEN), COPD (Chronic Obstructive Pulmonary Disease) (GEN), Hypertension (GEN) Activity Restrictions/Additional Instructions: Complete antibiotic course, prednisone taper for haemophilus infection and COPD exacerbation. Continue breathing treatments at home. Please hold your usual prednisone dose until you are done with prednisone taper, then resume 5 mg. Please stop smoking, continue smoking will lead to continued worsening of your lung function, risk of stroke, heart attack, cancer in addition to other complications. Please monitor blood pressures twice daily at home, write down values to bring to your appointment. Follow-up with your primary doctor for optimization of control of elevated blood pressure. You are started on amlodipine. Discharge Attestations Time Spent in Discharge Care*: greater than 30 min Quality Metrics Clinical Quality Measures [ No reported AMI, CVA or VTE this stay] Coding Level of Care Code 80412 Total time (in minutes) for Discharge: 45 Diagnoses Acute respiratory failure with hypoxia J96.01 Haemophilus influenzae infection A49.2 Acute exacerbation of chronic obstructive airways disease J44.1 Nicotine addiction F17.200
== END 2022-08-27 15:31 | disposition home or self-care (01) | DRG 192 ==
LOC: ER 17:37 → MEDSURG 19:13
PROVIDERS: Admitting Provider Student in an Organized Health Care Education/Training Program; Emergency Provider Emergency Medicine; PCP Internal Medicine; Visit Provider Internal Medicine
DX: J43.9 Emphysema, unspecified (principal); B96.3 Hemophilus influenzae [H. influenzae] as the cause of diseases classified elsewhere; I10 Essential (primary) hypertension; Z79.51 Long term (current) use of inhaled steroids; F17.210 Nicotine dependence, cigarettes, uncomplicated; G25.2 Other specified forms of tremor
CPT/HCPCS: 36415; 36600; 71045; 71275; 80051; 80053; 80061; 80503; 81003; 82330; 82607; 82746; 82805; 83036; 83540; 83550; 83735; 83880; 84100; 84145; 84443; 85007; 85025; 85378; 86403; 87040; 87070; 87205; 87426; 87449; 87641; 93005; 93306; 94640; 94660; 94664; 94760; 96365; 96367; 96372; 96375; 99291; C9113; J0456; J0696; J1100; J1644; J1940; J2405; J2920; J2930; J7050; J7613; J7614; J7626; J7644; Q0144; Q9967

== ENCOUNTER 2022-12-05 10:45 | Outpatient (CLI) | payer OTHER, SELFPAY ==
--- NOTE | 2022-12-05 11:00 | CT_ITS ---
WS: [id number] CT chest wo con [id number] HISTORY: 6 month f/u TECHNIQUE: Axial imaging performed through the thorax. Coronal and sagittal reformats are submitted. All CT scans at [facility] use at least one of these dose optimization techniques: automated exposure control; mA and/or kV adjustment per patient size (includes targeted exams where dose is mat ched to clinical indication); or iterative reconstruction. CONTRAST: None DLP: 258.21 mGy.cm COMPARISON: 08/22/2022 and 06/04/2022, 01/25/2022, 06/29/2020, PET/CT 03/03/2022 Lungs and central airway: Hyperexpanded lungs from emphysema. PET/CT positive spiculated nodule LEFT upper lobe measuring 10 x 6 mm. Not significantly changed in size since 01/25/2022. This nodule is new since 06/29/2020. There is an additional spiculated nodule in the superior segment of the LEFT lower l obe with a maximum diameter of 4 mm which is also stable. There is a tiny micronodule RIGHT lower lob e, image 26 of series 5. Not present on prior studies but may be not included or visualized due to vo lume averaging. Pleura: Normal. No pleural effusion. Heart and pericardium: Normal size heart with no pericardial effusion. Mediastinum and demetri: No lymph nodes identified on today's unenhanced exam. Enlarged lymph nodes were identified at the hilar regions on the prior examination of 08/22/2022. These are not definitely seen on today's exam without contrast. Vessels: Mild atherosclerosis aorta. No aneurysm. Normal size pulmonary artery. Chest wall and lower neck: No soft tissue masses. Upper abdomen: Normal. Osseous structures: No destructive process. IMPRESSION: 1. No change spiculated nodule LEFT upper lobe measuring 10 x 6 mm. This was positive on the PET/CT f rom 03/03/2022. 2. Stable LEFT lower lobe nodule with a maximum diameter of 4 mm. No increase in size since the PET/C T. 3. New RIGHT lower lobe micronodule, 3 mm. May've been present and not visualized due to small size a nd volume averaging. 4. No adenopathy identified on today's examination performed without IV contrast.
== END 2022-12-05 10:46 | disposition home or self-care (01) ==
LOC: RAD 10:46
PROVIDERS: PCP Internal Medicine; Visit Provider Internal Medicine Pulmonary Disease
DX: R91.8 Other nonspecific abnormal finding of lung field (principal)
CPT/HCPCS: 71250

== ENCOUNTER 2023-01-28 12:56 | Outpatient (CLI) | payer OTHER, SELFPAY ==
--- NOTE | 2023-01-28 13:00 | CT_ITS ---
WS: [id number] CT CHEST TECHNIQUE: Noncontrast CT of the chest with coronal and sagittal reformatted images. CLINICAL INFORMATION: lung nodules COMPARISON: CT 12/05/2022 DLP: 249.[address] scans at [facility] use at least one of these dose optimization techniques: automated e xposure control; mA and/or kV adjustment per patient size (includes targeted exams where dose is matc hed to clinical indication); or iterative reconstruction. FINDINGS: Stable spiculated nodule LEFT upper lobe measuring 10 x 6 mm previously positive on the PET/CT 03/03/19 23. Stable 4 mm LEFT lower lobe nodule. Tiny nodule RIGHT lower lobe measuring 3 mm is unchanged. No new suspicious pulmonary parenchymal opacities. Moderate chronic emphysematous changes. Calcified granulo ma LEFT upper lobe near the apex. Aortic calcification. No mediastinal or hilar lymphadenopathy. No axillary lymphadenopathy. Adrenal g lands are normal. Normal GE junction. Mild thoracic curve. Mild thoracic kyphosis. IMPRESSION: 1. No significant changes compared to 12/05/2022 2. Stable spiculated nodule LEFT upper lobe measuring 10 x 6 mm. 3. Stable 4 mm LEFT lower lobe nodule. 4. Stable tiny nodule RIGHT lower lobe measuring 3 mm. 5. No new suspicious pulmonary opacities. 6. No mediastinal or hilar lymphadenopathy.
== END 2023-01-28 12:57 | disposition home or self-care (01) ==
LOC: RAD 12:56
PROVIDERS: PCP Internal Medicine; Visit Provider Internal Medicine Pulmonary Disease
DX: J44.9 Chronic obstructive pulmonary disease, unspecified (principal); R91.8 Other nonspecific abnormal finding of lung field
CPT/HCPCS: 71250

== ENCOUNTER 2023-08-02 15:31 | Outpatient (CLI) | payer OTHER, MEDICARE, SELFPAY ==
--- NOTE | 2023-08-02 15:45 | CTR_ITS ---
PROCEDURE INFORMATION: Exam: CT Chest Without Contrast; Diagnostic Exam date and time: 08/02/2023 3:37 PM Age: 62 years old Clinical indication: Abnormal findings; Abnormal radiologic exam of lung or chest; Patient HX: No significant changes compared to 12/05/2022 2. Stable spiculated nodule left upper lobe measuring 10 x 6 mm. 3. Stable 4 mm left lower lobe nodule. 4. Stable tiny nodule right lower lobe measuring 3 mm. 5. No new suspicious pulmonary opacities. 6. No mediastinal or hilar lymphadenopathy; Additional info: F/u lung nodules TECHNIQUE: Imaging protocol: Diagnostic computed tomography of the chest without contrast. Radiation optimization: All CT scans at this facility use at least one of these dose optimization techniques: automated exposure control; mA and/or kV adjustment per patient size (includes targeted exams where dose is matched to clinical indication); or iterative reconstruction. COMPARISON: CT chest [facility] [id number] 01/28/2023 1:18 PM RADIATION DOSE METRICS: Total DLP (mGy-cm): 216.82 FINDINGS: Lungs: Streaky opacity at the left lung apex appears stable when compared to the prior CT scan and measures 13 x 5 mm in the transverse/AP dimensions. Left and right lower lobe nodules reported on the prior CT scan not visualized. No new pulmonary nodules. There are severe emphysematous changes in the lungs. Bilateral lung scarring. There are pulmonary parenchymal calcifications consistent with remote granulomatous organism exposure. Pleural spaces: Unremarkable. No pneumothorax. No pleural effusion. Heart: Unremarkable. No cardiomegaly. No pericardial effusion. Coronary arteries: Multivessel atherosclerotic disease which involves the coronary arteries. Lymph nodes: Unremarkable. No enlarged lymph nodes. Vasculature: Unremarkable. No aortic aneurysm. Bones/joints: Unremarkable. No acute fracture. Soft tissues: Unremarkable. CT/CT chest wo con [id number] IMPRESSION: 1. Streaky opacity at the left lung apex appears stable when compared to the prior CT scan and measures 13 x 5 mm in the transverse/AP dimensions. 2. Left and right lower lobe nodules reported on the prior CT scan not visualized. No new pulmonary nodules. 3. There are severe emphysematous changes in the lungs. COMMENTS: The presence of pulmonary emphysema on CT is an independent risk factor for lung cancer. In the absence of a history or active diagnosis of lung cancer, it is recommended that this patient with emphysema be evaluated for enrollment in a low dose CT lung cancer screening program.
== END 2023-08-02 15:32 | disposition home or self-care (01) ==
LOC: RAD 15:31
PROVIDERS: PCP Internal Medicine; Visit Provider Internal Medicine Pulmonary Disease
DX: R91.1 Solitary pulmonary nodule (principal); R91.8 Other nonspecific abnormal finding of lung field; J98.4 Other disorders of lung
CPT/HCPCS: 71250

== ENCOUNTER 2023-12-01 19:51 | Inpatient (IN) | payer MEDICARE, OTHER, SELFPAY ==
[2023-12-01] VITALS (28 sets, daily range): BP systolic 109–175; BP diastolic 68–91; PULSE 93–137; RESP 12–36; TEMP 36.9; O2SAT 92–99; BMI 25.0; BMI 17.4
--- NOTE | 2023-12-01 19:52 | ECG_ITS ---
[facility] Test Date: 2023-12-01 Pat Name: Ebonie Damon Department: Room: Gender: Female Classification Counselor: : 1960 Requested By: Jem Grant Order Number: [id number] Florecita MD: Yessica Wick M.D. Measurements Intervals [place] Rate: 121 P: 90 DC: 131 QRS: 70 QRSD: 81 T: 49 QT: 338 QTc: 480 Interpretive Statements SINUS TACHYCARDIA Possible JAN ABNORMAL RHYTHM ECG Compared to ECG 08/22/2022 16:30:08 Atrial abnormality no longer present ST (T wave) deviation no longer present Electronically Signed On 12-01-2023 22:48:25 CDT by Yessica Wick M.D. [id number]
--- NOTE | 2023-12-01 20:07 | XRR_ITS ---
PROCEDURE INFORMATION: Exam: XR Chest Exam date and time: 12/01/2023 8:17 PM Age: 63 years old Clinical indication: Cough and shortness of breath; Patient HX: Cough with SOB. History of copd. TECHNIQUE: Imaging protocol: Radiologic exam of the chest. Views: 1 view. COMPARISON: CT chest [facility] [place] [id number] 08/02/2023 3:37 PM FINDINGS: Lungs: Pulmonary hyperinflation with flattening of the hemidiaphragms. Emphysematous changes. Bibasilar atelectasis/scarring. No consolidative airspace disease. Left upper lobe calcified granuloma. Pleural spaces: Unremarkable. No pleural effusion. No pneumothorax. Heart/Mediastinum: Unremarkable. No cardiomegaly. Vasculature: Atherosclerotic aortic calcifications. Bones/joints: Unremarkable. XR/XR chest 1V portable [id number] IMPRESSION: Pulmonary hyperinflation with emphysematous changes. No acute cardiopulmonary findings.
[2023-12-01] MEDS: ipratropium-albuterol 3 mL Neb INHALATION (20:12)
[2023-12-01] MEDS: albuterol 2.5 mg/3 mL Neb INHALATION (20:12)
[2023-12-01 20:23] LABS: ABG PH Result 7.34 (7.35-7.45); Arterial Blood Gas Hematocrit 50.4 % (37-47); Base Excess ABG 4.8 mmol/L (-2.0-2.0); Blood Gas Sample Site Brachial, left; Blood Gas Sample Type Arterial; Carboxyhemoglobin 1.6 %THgb (0.4-20.1); HGB O2 Sat 96.9 % (95-100); Ionized Calcium Level - ABG 1.2 mmol/L (1.1-1.4); Methemoglobin 0.2 % (0.4-1.5); Oxygen Device NC; Oxygen Saturation ABG 98.7; Potassium Level - ABG 3.9 mmol/L (3.5-5.0); Total Hemoglobin 16.4 g/dL (12-16)
[2023-12-01 20:24] LABS: ABG PCO2 61.9 mmHg (35-45)
[2023-12-01 20:40] LABS: Basophils % 0.2 %; Eosinophils % 0.1 %; Hematocrit 52.4 % (36-47); Lymphocytes # 1.8 10^3/uL (0.8-4.8); Lymphocytes % 19.4 %; Mean Corpuscular HGB Conc 32.4 g/dL (30-55); Mean Corpuscular Hemoglobin 29.3 pg (27-33); Mean Corpuscular Volume 90.2 fl (85-98); Mean Platelet Volume 11.7 fL (7.4-10.4); Monocytes # 0.8 10^3/uL (0.2-0.9); Monocytes % 8.4 %; Neutrophils # 6.74 10^3/uL (1.8-7.7); Neutrophils % 71.7 %; Nucleated Red Blood Cells % 0 %; Platelet Count 242 10^3/cmm (157-399); Red Blood Count 5.81 10^6/uL (3.85-5.65); Red Cell Distribution Width 12.2 % (12.1-15.1)
--- NOTE | 2023-12-01 20:41 | ED_ITS ---
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 This been going on for about a week. She has had a productive cough. Her breathing treatments are not helping as much as they usually do. She has been requiring more oxygen up to 5 L. On presentation her lungs are very tight. She is working fairly hard to breathe. She is requiring about 3 L nasal cannula. No known fevers. Some chest pain at times. No abdominal pain. No nausea or vomiting. Related Data Home Medications Medication Instructions Recorded Confirmed sertraline 50 mg tablet 50 mg PO BEDTIME 05/21/22 03/21/23 albuterol sulfate 90 mcg/actuation 2 puff inhalation Q4H PRN 08/22/22 03/21/23 aerosol inhaler (Proventil HFA) shortness of breath or wheezing ipratropium 20 mcg-albuterol 100 1 puff inhalation QID 08/22/22 03/21/23 mcg/actuation mist for inhalation (Combivent Respimat) montelukast 10 mg tablet 10 mg PO DAILY PRN Allergy Symptoms 08/22/22 03/21/23 Previous Rx's Medication Instructions Recorded prednisone 5 mg tablet 5 mg PO DAILY 90 days #90 tabs 03/26/22 albuterol sulfate 2.5 mg/3 mL 2.5 mg (3 mL) inhalation Q4H PRN 08/27/22 (0.083 %) solution for nebulization shortness of breath or wheezing #180 mL amlodipine 5 mg tablet 5 mg PO DAILY #90 tabs 08/27/22 benzonatate 100 mg capsule 200 mg (2 x 100 mg) PO TID PRN 08/27/22 Cough #30 caps budesonide 0.5 mg/2 mL suspension 0.5 mg (2 mL) inhalation BID COPD 04/17/23 for nebulization #120 mL formoterol fumarate 20 mcg/2 mL 2 ml inhalation BID #120 mL 04/17/23 solution for nebulization (Perforomist) revefenacin 175 mcg/3 mL solution 175 mcg (3 mL) inhalation DAILY 04/17/23 for nebulization (Yupelri) #90 mL Allergies Allergy/AdvReac Type Severity Reaction Status Date / Time No Known Allergies Allergy Verified 03/21/23 11:29 Review of Systems 2 Narrative: Constitutional symptoms: Negative except as documented in HPI. Skin symptoms: Negative except as documented in HPI. Eye symptoms: Negative except as documented in HPI. ENMT symptoms: Negative except as documented in HPI. Respiratory symptoms: Negative except as documented in HPI. Cardiovascular symptoms: Negative except as documented in HPI. Gastrointestinal symptoms: Negative except as documented in HPI. Genitourinary symptoms: Negative except as documented in HPI. Musculoskeletal symptoms: Negative except as documented in HPI. Neurologic symptoms: Negative except as documented in HPI. Psychiatric symptoms: Negative except as documented in HPI. Endocrine symptoms: Negative except as documented in HPI. PFSH ED 2 PFSH: Medical History Chronic obstructive pulmonary disease Surgical History Hx of section Family History Mother CHF (congestive heart failure) Hypertension Diabetes Brother Hypertension Father Cancer Lung Grandmother Diabetes Social History Smoking and tobacco/nicotine status: current every day tobacco/nicotine user cigarettes Packs smoked per day: 0.5 Years cigarettes smoked: 46 [ Other cigarette details: 1 ppd X 40 years, Started at age 16 years.] Quit status (tobacco/nicotine): considering quitting Second hand smoke exposure: Yes Alcohol intake: former Substance/Drug Use: never Lives independently: Yes Household members: spouse Marital status: Current occupational status: employed Current occupation: [employer] Pets and animals: Yes Do you think of yourself as: Straight/Heterosexual Current gender identity: Female Physical Exam 2 Narrative: EXAM NARRATIVE: General: Alert, moderate distress. Skin: Warm, dry. Head: Normocephalic, atraumatic. Neck: Supple, trachea midline. Eye: Extraocular movements are intact. Ears, nose, mouth and throat: Oral mucosa moist. Cardiovascular: Regular, tachycardic, Normal peripheral perfusion. Respiratory: coarse, scattered wheeze, moderate increased wob. tachypnea, prolonged expiratory phase. breath sounds are equal, Symmetrical chest wall expansion. Gastrointestinal: Soft, Nontender, Non distended, Normal bowel sounds. Musculoskeletal: Normal ROM, no deformity. Neurological: Alert and oriented to person, place, time, and situation, No focal neurological deficit observed. Psychiatric: Cooperative, appropriate mood & affect. Course 2 Vital Signs: Vital signs: Vital Signs Temperature 98.4 F 12/01/23 19:52 Pulse Rate 137 H 12/01/23 21:08 Respiratory Rate 24 H 12/01/23 20:12 Blood Pressure 141/91 12/01/23 21:08 Pulse Oximetry 97 12/01/23 21:08 Oxygen Delivery Me thod Nasal Cannula 12/01/23 20:12 Oxygen Flow Rate 3 12/01/23 20:12 Fraction of Inspir ed Oxygen 35 12/01/23 20:45 MDM - SOB/Dyspnea Medical Decision Making Differential diagnosis for patient with shortness of breath includes but is not limited to and based on the above HPI, review of systems and physical exam: Pneumonia. Bronchitis. Asthma or COPD with acute exacerbation. Acute coronary syndrome / TN. Pulmonary embolism. Anxiety. Congestive heart failure. Viral infections including influenza and Covid-19. Atrial fibrillation. Anxiety. Pleural effusion. Pneumothorax. Orders placed to evaluate differential diagnosis based on the above differential, HPI and physical exam AB.3 4/62/116 on 3 L nasal cannula. She does have a slight increase in her CO2 retention over baseline. Not completely compensated. Given this and her work of breathing BiPAP has been ordered. EKG: Time 1950. Rate 121. Sinus tachycardia, No ST-T changes, no ectopy, normal UT & QRS intervals, This was reviewed and interpreted by myself the ER physician at 1954. Chest x-ray: Hyperexpansion, flattened diaphragms, emphysematous changes, no no obvious acute infiltrate. No pneumothorax. This was reviewed and interpreted by myself the ER physician. Lab Review: Laboratory results were reviewed and interpreted by myself the emergency room physician. No leukocytosis. White count is 9.4. She is slightly polycythemic with hemoglobin of 17. This is slightly above her baseline. Renal function is normal at 15 and 0.5. Potassium is 4.2. proBNP is 737. This is actually down from previous measurements. She appears dry on exam and is a bit tachycardic so I am giving her some fluids. I reviewed the patient's medical record. Reexamination: Patient's heart rate has improved some. At admission she is down to about 116. With some Ativan she appears much less anxious also with the BiPAP her work of breathing has improved. No altered mental status. No focal motor deficits. She is requiring about 3 L oxygen. Consultation: I spoke with Dr. Salazar who is on-call for the hospitalist service who agrees to admission. She recommends ICU admission. Assessment and plan: COPD with acute exacerbation. Acute on chronic hypoxemic respiratory failure. ?IV Solu-Medrol, IV Ativan, 2 updrafts, IV doxycycline and a normal saline bolus -I discussed the patient with the hospitalist on-call who is admitting the patient. - Discussed findings and plan with patient. Answered any questions. - All laboratory values were reviewed and interpreted personally by myself, the ER physician - All imaging was reviewed and interpreted personally by myself, the ER physician. - Evaluation and treatment of this problem were appropriate in the emergency setting Critical care -I spent a total of >35 minutes of critical care time managing the patient, independent of any other practitioner. -The time involved in the performance of separately reportable procedures was not counted towards critical care time. Lab Data 12/01/23 20:21 12/01/23 20:21 Labs/Radiology: Laboratory Results WBC 9.40 10^3/uL (3.29-11.43) 12/01/23 20: RBC 5.81 10^6/uL (3.85-5.65) H 12/01/23 20:21 Hgb 17.00 g/dL (11.27-16.99) H 12/01/23 20:21 Hct 52.4 % (36-47) H 12/01/23 20:21 MCV 90.2 fl (85-98) 12/01/23 20:21 MCH 29.3 pg (27-33) 12/01/23 20:21 MCHC 32.4 g/dL (30-55) 12/01/23 20:21 RDW 12.2 % (12.1-15.1) 12/01/23 20:21 Plt Count 242 10^3/cmm (157-399) 12/01/23 20:21 MPV 11.7 fL (7.4-10.4) H 12/01/23 20:21 Neut % (Auto) 71.7 % 12/01/23 20:21 Lymph % (Auto) 19.4 % 12/01/23 20:21 Cache % (Auto) 8.4 % 12/01/23 20:21 Eos % (Auto) 0.1 % 12/01/23 20:21 Baso % (Auto) 0.2 % 12/01/23 20:21 Neut # (Auto) 6.74 10^3/uL (1.8-7.7) 12/01/23 20:21 Lymph # (Auto) 1.8 10^3/uL (0.8-4.8) 12/01/23 20:21 Cache # (Auto) 0.8 10^3/uL (0.2-0.9) 12/01/23 20:21 Eos # (Auto) 0.0 10^3/uL (0.0-0.8) 12/01/23 20:21 Baso # (Auto) 0.0 10^3/uL (0.0-0.1) 12/01/23 20:21 Nucleated RBC % (auto) 0 % 12/01/23 20: Nucleated RBCs # 0.0 /100WBC 12/01/23 20:21 Specimen Type Arterial 12/01/23 20:12 Sample Site Brachial, left 12/01/23 20:12 ABG pH 7.34 (7.35-7.45) L 12/01/23 20:12 ABG pCO2 61.9 mmHg (35-45) H* 12/01/23 20:12 ABG pO2 116.0 mmHg (80.0-100.0) H 12/01/23 20:12 ABG HCO3 33.0 mmol/L (22-26) H 12/01/23 20:12 ABG O2 Saturation 98.7 12/01/23 20:12 ABG Base Excess 4.8 mmol/L (-2.0-2.0) H 12/01/23 20:12 Twan Test N/a 12/01/23 20:12 A-a O2 Gradient 0.0 mmHg (5-10) L 12/01/23 20:12 Hematocrit 50.4 % (37-47) H 12/01/23 20:12 Hgb O2 Saturation 96.9 % (95-100) 12/01/23 20:12 Carboxyhemoglobin 1.6 %THgb (0.4-20.1) 12/01/23 20:12 Methemoglobin 0.2 % (0.4-1.5) L 12/01/23 20:12 Total Hemoglobin 16.4 g/dL (12-16) H 12/01/23 20:12 Sodium 140.0 mmol/L (131-143) 12/01/23 20:12 Potassium 3.9 mmol/L (3.5-5.0) 12/01/23 20:12 Glucose 98.0 mg/dL (70-115) 12/01/23 20:12 Ionized Calcium 1.2 mmol/L (1.1-1.4) 12/01/23 20:12 O2 Delivery Device Nc 12/01/23 20:12 O2 Liters/Min 3.0 % 12/01/23 20:12 Chief Of Production ID [email or web address] 12/01/23 20:12 Sodium 139 mmol/L (136-145) 12/01/23 20:21 Potassium 4.2 mmol/L (3.5-5.1) 12/01/23 20:21 Chloride 97 mmol/L (98-107) L 12/01/23 20:21 Carbon Dioxide 30 mmol/L (22-29) H 12/01/23 20:21 Anion Gap 16.2 (5-19) 12/01/23 20:21 BUN 15 mg/dL (8-23) 12/01/23 20:21 Creatinine 0.5 mg/dL (0.5-0.9) 12/01/23 20:21 GFR Calculation 124.6 mL/min (90-130) 12/01/23 20:21 Glucose 100 mg/dL (65-115) 12/01/23 20:21 Calculated Osmolality 289 mOsm/kg (285-295) 12/01/23 20:21 Lactic Acid 1.7 mmol/L (0.5-2.2) 12/01/23 20:21 Calcium 9.5 mg/dL (8.5-10.5) 12/01/23 20:21 Total Bilirubin 0.2 mg/dL (0.15-1.2) 12/01/23 20:21 AST 19 U/L (0-32) 12/01/23 20:21 ALT 15 U/L (0-33) 12/01/23 20:21 Alkaline Phosphatase 131 U/L (35-105) H 12/01/23 20:21 Troponin T Baseline 12 ng/L (0-10) H 12/01/23 20:21 C-Reactive Protein 4.0 mg/L (0.0-4.9) 12/01/23 20:21 NT-Pro-B Natriuret Pep 737 pg/mL (0-125) H 12/01/23 20:21 Total Protein 7.5 g/dL (6.6-8.7) 12/01/23 20:21 Albumin 4.9 g/dL (3.5-5.2) 12/01/23 20:21 Globulin 2.6 g/dL (1.3-4.6) 12/01/23 20:21 XR interpretation done by ED provider, pending radiology final review Discharge Plan Discharge Patient Disposition: Admitted As Inpatient Clinical Impression: COPD with acute exacerbation, Acute on chronic hypoxic respiratory failure Condition: Stable Coding Level of Care Code ED Plant And Instrument Engineer for Kenney Starkey
[2023-12-01] MEDS: methylPREDNISolone sod succ 125 mg/2 mL INJ IVP (20:42)
[2023-12-01] MEDS: LORazepam 2 mg/mL INJ 1 mL 1 MG IVP (20:42)
[2023-12-01 21:00] LABS: Lactic Sepsis W/Reflex 1.7 mmol/L (0.5-2.2)
[2023-12-01 21:02] LABS: Troponin(5th) Baseline 12 ng/L (0-10)
[2023-12-01 21:10] LABS: Alanine Aminotransferase 15 U/L (0-33); Albumin Level 4.9 g/dL (3.5-5.2); Alkaline Phosphatase 131 U/L (35-105); Anion Gap 16.2 (5-19); Aspartate Amino Transferase 19 U/L (0-32); Blood Urea Nitrogen 15 mg/dL (8-23); Calcium 9.5 mg/dL (8.5-10.5); Carbon Dioxide 30 mmol/L (22-29); Chloride 97 mmol/L (98-107); Globulin 2.6 g/dL (1.3-4.6); Glomerular Filtration Rate 124.6 mL/min (90-130); Glucose 100 mg/dL (65-115); NT Pro B Type Natriuretic Pept 737 pg/mL (0-125); Osmolality Calculated 289 mOsm/kg (285-295); Potassium 4.2 mmol/L (3.5-5.1); Sodium 139 mmol/L (136-145); Total Bilirubin 0.2 mg/dL (0.15-1.2); Total Protein 7.5 g/dL (6.6-8.7)
[2023-12-01] MEDS: sodium chloride 0.9% 500 ML 999 ML IV (21:18)
[2023-12-01] MEDS: doxycycline 100 MG in sodium chloride 0.9% (plus) 100 ML IV (21:18)
[2023-12-01 21:19] LABS: Covid PCR NEGATIVE (Negative); Influenza A NEGATIVE (Negative); Influenza B NEGATIVE (Negative); Respiratory Syncytial Virus Ce NEGATIVE (Negative)
[2023-12-01 21:25] LABS: Bilirubin Urine Negative (Negative); Blood Urine Negative (Negative); Glucose Urine UA Negative (Normal); Ketones Urine 1+ (Negative); Leukocyte Esterase Urine Trace (Negative); Nitrate Urine Negative (Negative); Protein Urine 1+ (Negative); Specific Gravity, Urine 1.017 (1.005-1.030); Urine Appearance Clear (CLEAR); Urine Color Yellow (Yellow); pH Urine 5.5 (5-7)
[2023-12-01 21:30] LABS: Bacteria Urine Trace /hpf; Hyaline Casts Urine 1.21 /lpf; RBC Urine 0-2 /hpf (0-2); WBC Urine 0-5 /hpf (0-5)
--- NOTE | 2023-12-01 22:08 | ECG_ITS ---
[facility] Test Date: 2023-12-02 Pat Name: Ebonie Damon Department: Room: [facility] Gender: Female Orthodontist Assistant: : 1960 Requested By: Caty Clemons Order Number: [id number] Florecita MD: Yessica Wick M.D. Measurements Intervals [place] Rate: 102 P: 79 UT: 146 QRS: 76 QRSD: 76 T: 73 QT: 353 QTc: 460 Interpretive Statements SINUS TACHYCARDIA POSSIBLE RIGHT ATRIAL ENLARGEMENT [0.25mV P-WAVE] ABNORMAL RHYTHM ECG Compared to ECG 12/01/2023 19:51:11 No significant changes Electronically Signed On 12-03-2023 01:26:23 CDT by Yessica Wick M.D. [id number]
[2023-12-01 22:57] LABS: Troponin 5 2HR 13.54 ng/L (0-10); Troponin 5 2HR Delta 1.54 ABS# (0-10)
--- NOTE | 2023-12-01 23:19 | PC.NURSE ---
Pt transferred to ICU 8 from ED on stretcher, arrived at unit at 2206. Pt visibly distressed, respirations rapid, shallow, and accessory muscles used. Transferred to ICU bed and RT present, placed on bipap at 35% FiO2. Patient able to answer simple, short answers, but causes more distress to patient. Will hold verbal assessments until patient less distressed.
--- NOTE | 2023-12-01 23:30 | P.HP_ITS ---
Providers/Chief Complaint 2 Admitting Physician: Herminia Salazar MD Primary Care Provider: Teodoro Peter DO Chief Complaint: SOB History of Present Illness Ebonie Damon is a 63 year old female with a past medical history of COPD, on chronic home oxygen, severely reduced DLCO at 25%. She presented to the emergency room today with chief complaints of being short of breath . She has had increased mucus production, increased cough and creased dyspnea for the past 3 days. Her oxygen requirement is currently at 5 to 6 L/min, from her usual 3 L/min at home. There is diffuse wheezing on exam. Patient is significantly tachypneic with a respiratory rate of 40/min at the time of this assessment, she did require to be placed on BiPAP due to impending respiratory fatigue in the emergency room. Denies any chest pain. Review of Systems 2 General: Reports: 10 or more systems reviewed and unremarkable except in HPI and below Const: Denies: fever(s), chills or body aches Eyes: Denies: change in vision, blurry vision or photophobia ENMT: Reports: hoarseness; Denies: throat pain, enlarged tonsils, odynophagia or nasal congestion Card: Denies: chest pain, palpitations, irregular heart rhythm, edema, swelling of feet/ankles, lightheadedness, pre-syncope, dyspnea on exertion or orthopnea Resp: Denies: dyspnea, productive cough, non-productive cough, wheezing, stridor, pain on inspiration, change in phlegm color, hemoptysis or chest congestion GI: Denies: abdominal pain, nausea, vomiting, hematemesis, coffee ground emesis, dysphagia, heartburn, diarrhea, constipation, GI cramping, change in stool character, hematochezia or melena : Denies: flank pain, difficulty voiding, dysuria, urinary frequency, urinary urgency, urinary hesitancy or hematuria Musc: Denies: neck pain, back pain, extremity pain, joint swelling, joint warmth or deformity Neuro: Denies: headache(s), numbness in extremities, weakness in extremities, sensory changes, difficulty walking, frequent falls, dizziness, vertigo, behavioral changes, Slurred speech present or seizure-like activity Psych: Denies: anxiety, depression, suicidal ideation or homicidal ideation Endo: Denies: polyuria, polydipsia, tired all the time, cold intolerance or hot flashes Peña/Lymph: Denies: easy bruising or easy bleeding Medications/Allergies Home Medications Medication Instructions Recorded Confirmed Last Taken Type prednisone 5 mg tablet 5 mg PO DAILY 90 days #90 tabs 03/26/22 03/21/23 08/21/22 Rx sertraline 50 mg tablet 50 mg PO BEDTIME 05/21/22 03/21/23 08/21/22 History albuterol sulfate 90 mcg/actuation 2 puff inhalation Q4H PRN 08/22/22 03/21/23 Unknown History aerosol inhaler (Proventil HFA) shortness of breath or wheezing ipratropium 20 mcg-albuterol 100 1 puff inhalation QID 08/22/22 03/21/23 Unknown History mcg/actuation mist for inhalation (Combivent Respimat) montelukast 10 mg tablet 10 mg PO DAILY PRN Allergy Symptoms 08/22/22 03/21/23 Unknown History albuterol sulfate 2.5 mg/3 mL 2.5 mg (3 mL) inhalation Q4H PRN 08/27/22 03/21/23 Unknown Rx (0.083 %) solution for nebulization shortness of breath or wheezing #180 mL amlodipine 5 mg tablet 5 mg PO DAILY #90 tabs 08/27/22 03/21/23 Unknown Rx benzonatate 100 mg capsule 200 mg (2 x 100 mg) PO TID PRN 08/27/22 03/21/23 Unknown Rx Cough #30 caps budesonide 0.5 mg/2 mL suspension 0.5 mg (2 mL) inhalation BID COPD 04/17/23 Unknown Rx for nebulization #120 mL formoterol fumarate 20 mcg/2 mL 2 ml inhalation BID #120 mL 04/17/23 Unknown Rx solution for nebulization (Perforomist) revefenacin 175 mcg/3 mL solution 175 mcg (3 mL) inhalation DAILY 04/17/23 Unknown Rx for nebulization (Yupelri) #90 mL Allergies Allergy/AdvReac Type Severity Reaction Status Date / Time No Known Allergies Allergy Verified 03/21/23 11:29 PFSH Acute 2 PFSH: Medical History Chronic obstructive pulmonary disease Surgical History Hx of section Family History Mother CHF (congestive heart failure) Hypertension Diabetes Brother Hypertension Father Cancer Lung Grandmother Diabetes Social History Smoking and tobacco/nicotine status: current every day tobacco/nicotine user cigarettes Packs smoked per day: 0.5 Years cigarettes smoked: 46 [ Other cigarette details: 1 ppd X 40 years, Started at age 16 years.] Quit status (tobacco/nicotine): considering quitting Second hand smoke exposure: Yes Alcohol intake: former Substance/Drug Use: never Lives independently: Yes Household members: spouse Marital status: Current occupational status: employed Current occupation: [employer] Pets and animals: Yes Do you think of yourself as: Straight/Heterosexual Current gender identity: Female Vitals/I&O/Wt Last Vital Signs Temp 98.4 F 12/02/23 04:30 Pulse 107 H 12/02/23 05:05 Resp 22 H 12/02/23 05:05 BP 137/94 12/02/23 05:05 Pulse Ox 98 12/02/23 05:05 O2 Del Method BiPAP 12/02/23 01:51 O2 Flow Rate 3 12/01/23 20:12 FiO2 35 12/02/23 01:58 12/01/23 12/01/23 12/02/23 14:59 22:59 06:59 Intake Total 600 / 600 Output Total 200 / 200 Balance 400 / 400 Weight last 48 hrs Weight 47.485 kg Weight 47.5 kg Weight 68.039 kg Physical Exam 2 Narrative: General: No acute distress, AO x3 HEENT: PERRLA, pupils bilaterally equal and reactive, pallors not present Chest: Bilateral diffuse wheezing to auscultation all areas, significantly tachypneic with respiratory rate of 40 to CVS: S1-S2 regular, no murmurs, no tachycardia, no gallops, no rubs Abdomen: Soft, nontender, no organomegaly, bowel sounds present Neuro: No focal deficits, no facial deformity, AO x3, power 5/5 in all limbs Extremities: No edema clubbing or cyanosis Urinary Catheter Management: Fry Latex: Cath Placed During This Visit: yes Reason for Continuing Indwelling Catheter: Accurate Measurement of Urinary Output in Critically Ill Patients Urinary Catheter Date of Insertion: 12/02/23 Urinary Catheter Time of Insertion: 05:15 Data 12/02/23 05:28 12/02/23 05:28 Micro: Microbiology 12/01/23 20:25 Blood Culture - Preliminary Blood SPECIMEN COLLECTED 12/01/23 20:21 Blood Culture - Preliminary Blood SPECIMEN COLLECTED ABG Interpretation 1: 12/01/23 20:12 ABG pH 7.34 L ABG pCO2 61.9 H* ABG pO2 116.0 H ABG HCO3 33.0 H ABG O2 Saturation 98.7 ABG Base Excess 4.8 H A&P Assessment and plan (1) Acute exacerbation of chronic obstructive airways disease: Clinical picture overall compatible with acute on chronic COPD exacerbation Severe symptoms, currently tachypneic with 42/min, unable to complete full sentences, diffuse bilateral wheezing to auscultation all areas placed on BiPAP ventilation in the emergency room following which her work of breathing is slightly better. Will admit to ICU and closely for any impending respiratory collapse. Start methylprednisolone 80 mg IV every 6 hours duoneb q6h, budesonide q12h scheduled inhalation X-ray without any consolidation As needed Tessalon Perles for cough. Supplemental O2 to keep saturation ~90%. Screening D-dimer, if elevated would evaluate for PE with CTA. EKG showing sinus tachycardia, troponin series overall unremarkable. (2) Chronic respiratory failure with hypoxia and hypercapnia: Acute on chronic hypoxemic hypercapnic respiratory failure. Currently ABG showing hypercapnic respiratory acidosis. Currently on BiPAP ventilation. Repeat ABG with a.m. labs. Plan DVT prophylaxis: Lovenox 40 Full code Attestations 2 Medical Necessity Statement*: Greater than 2 midnight stay is anticipated for severe acute on chronic COPD exacerbation with hypercapnic hypoxic respiratory failure needing BiPAP ventilation. Critical Care Time: The high probability of a clinically significant, sudden or life threatening deterioration of the patient's [respiratory, cardiovascular] system(s) required my full and direct attention, intervention and personal management. The critical care time is as shown. This time is in addition to time spent performing any reported procedures but includes the following: [x] Data and vital sign review and interpretation [x] Patient assessment, examination and intervention [x] Documentation [x] Medication orders and management Critical Care Time (min): 50 Coding Level of Care Code Critical Care >/= 30 minutes Critical care time (in minutes): 50 The high probability of a clinically significant, sudden or life threatening deterioration, as referenced in this documentation, required my full and direct attention, intervention and personal management. The critical care time shown is in addition to time spent performing any reported separately billable procedures and includes the following: [x] Data and vital sign review and interpretation [x ] Patient assessment, examination and intervention [x] Medication orders and management [x] Patient/Family updates as able [x] Care Coordination and Documentation. Diagnoses Acute exacerbation of chronic obstructive airways disease J44.1 Chronic respiratory failure with hypoxia and hypercapnia J96.11; J96.12
[2023-12-01] MEDS: enoxaparin 40 mg/0.4 mL Syringe SUBCUT (23:40)
[2023-12-02] VITALS (254 sets, daily range): BP systolic 83–165; BP diastolic 54–120; PULSE 73–126; RESP 11–33; TEMP 36.4–37.4; O2SAT 93–100
[2023-12-02] MEDS: ipratropium-albuterol 3 mL Neb INHALATION ×4 (01:50→19:53)
--- NOTE | 2023-12-02 01:56 | PC.NURSE ---
Patient consistently breathing 8 times per min (minimum setting on bipap) while sleeping. Contacted RT and made aware, settings switched to Avaps mode at rate of 16.
--- NOTE | 2023-12-02 02:12 | ECG_ITS ---
[facility] Test Date: 2023-12-02 Pat Name: Ebonie Damon Department: Room: ICU08 Gender: Female [employer]: : 1960 Requested By: Caty Clemons Order Number: [id number] Florecita MD: Yessica Wick M.D. Measurements Intervals [place] Rate: 96 P: 83 OR: 146 QRS: 68 QRSD: 76 T: 72 QT: 340 QTc: 431 Interpretive Statements SINUS RHYTHM POSSIBLE RIGHT ATRIAL ENLARGEMENT [0.25mV P-WAVE] Compared to ECG 12/02/2023 00:21:16 Sinus tachycardia no longer present Electronically Signed On 12-03-2023 01:26:32 CDT by Yessica Wick M.D. [id number]
[2023-12-02 02:50] LABS: Troponin 5 6HR 9.01 ng/L (0-10)
[2023-12-02 02:51] LABS: Troponin 5 6HR Delta -2.99 ng/L (0-12)
[2023-12-02] MEDS: methylPREDNISolone sod succ 40 mg/mL INJ IVP (04:25)
[2023-12-02] MEDS: methylPREDNISolone sod succ 125 mg/2 mL INJ 80 MG IVP ×3 (05:49→16:55)
[2023-12-02 06:03] LABS: Basophils % 0.1 %; Hematocrit 47.7 % (36-47); Lymphocytes # 0.8 10^3/uL (0.8-4.8); Lymphocytes % 10.8 %; Mean Corpuscular HGB Conc 31.7 g/dL (30-55); Mean Corpuscular Hemoglobin 29.1 pg (27-33); Mean Corpuscular Volume 91.9 fl (85-98); Mean Platelet Volume 10.9 fL (7.4-10.4); Monocytes # 0.1 10^3/uL (0.2-0.9); Monocytes % 1.7 %; Neutrophils % 86.8 %; Nucleated Red Blood Cells % 0 %; Platelet Count 259 10^3/cmm (157-399); Red Blood Count 5.19 10^6/uL (3.85-5.65); Red Cell Distribution Width 12.4 % (12.1-15.1); White Blood Count 7.25 10^3/uL (3.29-11.43)
[2023-12-02 06:18] LABS: Alanine Aminotransferase 13 U/L (0-33); Albumin Level 4.3 g/dL (3.5-5.2); Alkaline Phosphatase 112 U/L (35-105); Anion Gap 15.4 (5-19); Aspartate Amino Transferase 16 U/L (0-32); Blood Urea Nitrogen 21 mg/dL (8-23); Calcium 8.9 mg/dL (8.5-10.5); Carbon Dioxide 29 mmol/L (22-29); Chloride 98 mmol/L (98-107); Globulin 2.7 g/dL (1.3-4.6); Glucose 131 mg/dL (65-115); Osmolality Calculated 291 mOsm/kg (285-295); Potassium 4.4 mmol/L (3.5-5.1); Sodium 138 mmol/L (136-145); Total Bilirubin 0.2 mg/dL (0.15-1.2)
[2023-12-02] MEDS: amlodipine 5 mg Tablet PO (08:06)
[2023-12-02] MEDS: pantoprazole DR 40 mg Tablet PO (08:06)
[2023-12-02] MEDS: levoFLOXacin 750 mg Tablet PO (08:06)
[2023-12-02] MEDS: azithromycin 500 MG in sodium chloride 0.9% 250 ML 250 MG IV (08:29)
[2023-12-02] MEDS: cefTRIAXone 1,000 mg SDV 1000 MG IVP (08:29)
[2023-12-02] MEDS: budesonide 0.5 mg/2 mL Neb INHALATION ×2 (08:43→19:53)
[2023-12-02 13:39] LABS: ABG PH Result 7.37 (7.35-7.45); Arterial Blood Gas Hematocrit 45.2 % (37-47); Base Excess ABG 5.6 mmol/L (-2.0-2.0); Blood Gas Operator Identificat GD; Blood Gas Sample Site Brachial, right; Blood Gas Sample Type Arterial; HCO3 ABG 32.7 mmol/L (22-26); Oxygen Device BIPAP; PO2 FiO2 Ratio Arterial Blood 374
--- NOTE | 2023-12-02 16:31 | P.PN_ITS ---
Subjective 2 Subjective: Patient was seen this morning, she denies any fevers, no chills, does have a cough, does report smoking, her shortness of breath is better, she feels better with the BiPAP, Vitals/I&O/Wt Last Vital Signs Temp 98.6 F 12/02/23 08:00 Pulse 106 H 12/02/23 13:46 Resp 20 H 12/02/23 13:29 BP 100/69 12/02/23 12:45 Pulse Ox 97 12/02/23 13:46 O2 Del Method BiPAP 12/02/23 13:29 O2 Flow Rate 4 12/02/23 08:43 FiO2 35 12/02/23 13:46 12/02/23 12/02/23 12/02/23 06:59 14:59 22:59 Intake Total 600 / 600 400 / 400 Output Total 200 / 200 300 / 300 Balance 400 / 400 400 / 400 -300 / 100 Weight last 48 hrs Weight 47.485 kg Weight 47.5 kg Weight 68.039 kg Physical Exam 2 Const: COMMON NORMALS: no acute distress and patient oriented x3 Resp: COMMON NORMALS: normal respiratory effort, No retractions and No use of accessory muscles AUSCULTATION: wheezes Cardio: COMMON NORMALS: regular rate, regular rhythm, S1 normal heart sound present and S2 normal heart sound present RATE: regular rate RHYTHM: r egular rhythm HEART SOUNDS: S1 normal heart sound present and S2 normal heart sound present GI: COMMON NORMALS: Normal to inspection, nondistended, normoactive bowel sounds present and non-tender Extremity: COMMON NORMALS: no pedal edema Neuro: COMMON NORMALS: patient oriented x3 Psych: COMMON NORMALS: mental status grossly normal Urinary Catheter Management: Fry Latex: Cath Placed During This Visit: yes Reason for Continuing Indwelling Catheter: Accurate Measurement of Urinary Output in Critically Ill Patients Urinary Catheter Date of Insertion: 12/02/23 Urinary Catheter Time of Insertion: 05:15 Data 12/02/23 05:28 12/02/23 05:28 Micro: Microbiology 12/01/23 20:25 Blood Culture - Preliminary Blood SPECIMEN COLLECTED 12/01/23 20:21 Blood Culture - Preliminary Blood SPECIMEN COLLECTED A&P Assessment and plan (1) Acute exacerbation of chronic obstructive airways disease: acute on chronic COPD exacerbation Admit to ICU Continue BiPAP therapy Monitor respiratory status closely Start methylprednisolone 80 mg IV every 6 hours duoneb q6h, budesonide q12h scheduled inhalation Start Rocephin, azithromycin EKG showing sinus tachycardia, troponin series overall unremarkable. (2) Chronic respiratory failure with hypoxia and hypercapnia: Acute on chronic hypoxemic hypercapnic respiratory failure. Currently ABG showing hypercapnic respiratory acidosis. pCO2 improved to 57 (3) Acute hypoxic on chronic hypercapnic respiratory failure: Plan DVT prophylaxis: Lovenox 40 Full code Attestations 2 Medical Necessity Statement*: Patient requires hospitalization for acute COPD exacerbation, acute on chronic hypoxic hypercarbic respiratory failure Diagnoses Acute exacerbation of chronic obstructive airways disease J44.1 Chronic respiratory failure with hypoxia and hypercapnia J96.11; J96.12 Acute hypoxic on chronic hypercapnic respiratory failure J96.01; J96.12
[2023-12-02] MEDS: sertraline 50 mg Tablet PO (20:41)
[2023-12-02] MEDS: benzonatate 100 mg Capsule PO (20:41)
[2023-12-02] MEDS: enoxaparin 40 mg/0.4 mL Syringe SUBCUT (20:41)
[2023-12-03] VITALS (203 sets, daily range): BP systolic 104–166; BP diastolic 53–95; PULSE 68–118; RESP 15–38; TEMP 36.3–36.9; O2SAT 90–100
[2023-12-03] MEDS: methylPREDNISolone sod succ 125 mg/2 mL INJ 80 MG IVP ×4 (00:31→16:42)
[2023-12-03] MEDS: ipratropium-albuterol 3 mL Neb INHALATION ×4 (02:37→20:08)
[2023-12-03 05:24] LABS: Hematocrit 46.7 % (36-47); Lymphocytes # 0.8 10^3/uL (0.8-4.8); Lymphocytes % 9.8 %; Mean Corpuscular HGB Conc 31.9 g/dL (30-55); Mean Corpuscular Hemoglobin 29.4 pg (27-33); Mean Corpuscular Volume 92.3 fl (85-98); Monocytes # 0.3 10^3/uL (0.2-0.9); Monocytes % 3.8 %; Neutrophils # 6.55 10^3/uL (1.8-7.7); Neutrophils % 85.9 %; Nucleated Red Blood Cells % 0 %; Platelet Count 219 10^3/cmm (157-399); Red Blood Count 5.06 10^6/uL (3.85-5.65); Red Cell Distribution Width 12.5 % (12.1-15.1); White Blood Count 7.63 10^3/uL (3.29-11.43)
[2023-12-03 05:53] LABS: Anion Gap 14.4 (5-19); Blood Urea Nitrogen 21 mg/dL (8-23); Calcium 8.7 mg/dL (8.5-10.5); Carbon Dioxide 32 mmol/L (22-29); Chloride 97 mmol/L (98-107); Creatinine Clr Calc Pharmacy 86.3304; Glomerular Filtration Rate 124.6 mL/min (90-130); Glucose 143 mg/dL (65-115); NT Pro B Type Natriuretic Pept 207 pg/mL (0-125); Osmolality Calculated 293 mOsm/kg (285-295); Potassium 4.4 mmol/L (3.5-5.1); Sodium 139 mmol/L (136-145)
[2023-12-03] MEDS: budesonide 0.5 mg/2 mL Neb INHALATION ×2 (07:54→20:08)
[2023-12-03] MEDS: pantoprazole DR 40 mg Tablet PO (08:45)
[2023-12-03] MEDS: azithromycin 500 MG in sodium chloride 0.9% 250 ML 250 MG IV (08:45)
[2023-12-03] MEDS: amlodipine 5 mg Tablet PO (08:45)
[2023-12-03] MEDS: cefTRIAXone 1,000 mg SDV 1000 MG IVP (08:45)
--- NOTE | 2023-12-03 16:39 | P.PN_ITS ---
Subjective 2 Subjective: Patient was seen this morning, she is sitting up beside the bed, she is tachypneic, tachycardic, but she tells me that she just received a breathing treatment, she tells me that she feels better compared to yesterday, but her airways do persistently feels tight, no chest pain, no no palpitations, she tolerated the BiPAP well overnight Vitals/I&O/Wt Last Vital Signs Temp 98.4 F 12/03/23 12:00 Pulse 88 12/03/23 14:09 Resp 19 H 12/03/23 14:00 BP 135/72 12/03/23 12:00 Pulse Ox 96 12/03/23 14:08 O2 Del Method BiPAP 12/03/23 14:00 O2 Flow Rate 3 12/02/23 19:53 FiO2 28 12/03/23 14:08 12/03/23 12/03/23 12/03/23 06:59 14:59 22:59 Intake Total 240 / 1320 525 / 525 673 / 1198 Output Total 800 / 1100 Balance -560 / 220 525 / 525 673 / 1198 Weight last 48 hrs Weight 49.01 kg Weight 47.485 kg Weight 47.5 kg Weight 68.039 kg Physical Exam 2 Const: COMMON NORMALS: no acute distress and patient oriented x3 Resp: COMMON NORMALS: normal respiratory effort, No retractions and No use of accessory muscles AUSCULTATION: wheezes Cardio: COMMON NORMALS: regular rate, regular rhythm, S1 normal heart sound present and S2 normal heart sound present RATE: regular rate RHYTHM: r egular rhythm HEART SOUNDS: S1 normal heart sound present and S2 normal heart sound present GI: COMMON NORMALS: Normal to inspection, nondistended, normoactive bowel sounds present and non-tender Extremity: COMMON NORMALS: no pedal edema Neuro: COMMON NORMALS: patient oriented x3 Psych: COMMON NORMALS: mental status grossly normal Urinary Catheter Management: Fry Latex: Cath Placed During This Visit: yes Reason for Continuing Indwelling Catheter: Accurate Measurement of Urinary Output in Critically Ill Patients Urinary Catheter Date of Insertion: 12/02/23 Urinary Catheter Time of Insertion: 05:15 Data 12/03/23 04:58 12/03/23 04:58 Micro: Microbiology 12/01/23 20:25 Blood Culture - Preliminary Blood NEGATIVE TO DATE 12/01/23 20:21 Blood Culture - Preliminary Blood NEGATIVE TO DATE A&P Assessment and plan (1) Acute exacerbation of chronic obstructive airways disease: acute on chronic COPD exacerbation Continue ICU level monitoring Continue BiPAP therapy Monitor respiratory status closely Start methylprednisolone 80 mg IV every 6 hours duoneb q6h, budesonide q12h scheduled inhalation Continue Rocephin, azithromycin EKG showing sinus tachycardia, troponin series overall unremarkable. (2) Chronic respiratory failure with hypoxia and hypercapnia: Acute on chronic hypoxemic hypercapnic respiratory failure. Currently ABG showing hypercapnic respiratory acidosis. pCO2 improved to 57 (3) Acute hypoxic on chronic hypercapnic respiratory failure: Plan DVT prophylaxis: Lovenox 40 Full code Attestations 2 Medical Necessity Statement*: Patient requires hospitalization for acute hypoxic hypercapnic respiratory failure Diagnoses Acute exacerbation of chronic obstructive airways disease J44.1 Chronic respiratory failure with hypoxia and hypercapnia J96.11; J96.12 Acute hypoxic on chronic hypercapnic respiratory failure J96.01; J96.12
[2023-12-03] MEDS: sertraline 50 mg Tablet PO (21:37)
[2023-12-03] MEDS: enoxaparin 40 mg/0.4 mL Syringe SUBCUT (21:37)
[2023-12-04] VITALS (182 sets, daily range): BP systolic 118–172; BP diastolic 56–118; PULSE 73–112; RESP 15–35; TEMP 36.7–37; O2SAT 91–99
[2023-12-04] MEDS: methylPREDNISolone sod succ 125 mg/2 mL INJ 80 MG IVP ×4 (00:42→20:24)
[2023-12-04] MEDS: ipratropium-albuterol 3 mL Neb INHALATION ×4 (02:13→21:03)
[2023-12-04 05:53] LABS: Basophils % 0.1 %; Lymphocytes # 0.8 10^3/uL (0.8-4.8); Lymphocytes % 6.6 %; Mean Corpuscular HGB Conc 32.2 g/dL (30-55); Mean Corpuscular Hemoglobin 29.5 pg (27-33); Mean Corpuscular Volume 91.8 fl (85-98); Mean Platelet Volume 11.5 fL (7.4-10.4); Monocytes # 0.6 10^3/uL (0.2-0.9); Monocytes % 4.3 %; Neutrophils % 88.4 %; Nucleated Red Blood Cells % 0 %; Platelet Count 238 10^3/cmm (157-399); Red Blood Count 5.01 10^6/uL (3.85-5.65); Red Cell Distribution Width 12.6 % (12.1-15.1); White Blood Count 12.67 10^3/uL (3.29-11.43)
[2023-12-04 06:36] LABS: Anion Gap 14.5 (5-19); Blood Urea Nitrogen 24 mg/dL (8-23); Calcium 8.7 mg/dL (8.5-10.5); Carbon Dioxide 32 mmol/L (22-29); Chloride 99 mmol/L (98-107); Creatinine Clr Calc Pharmacy 98.7408; Glomerular Filtration Rate 124.6 mL/min (90-130); Glucose 141 mg/dL (65-115); NT Pro B Type Natriuretic Pept 341 pg/mL (0-125); Osmolality Calculated 298 mOsm/kg (285-295); Potassium 4.5 mmol/L (3.5-5.1); Sodium 141 mmol/L (136-145)
[2023-12-04] MEDS: budesonide 0.5 mg/2 mL Neb INHALATION ×2 (08:29→21:03)
[2023-12-04] MEDS: cefTRIAXone 1,000 mg SDV 1000 MG IVP (08:47)
[2023-12-04] MEDS: amlodipine 5 mg Tablet PO (08:47)
[2023-12-04] MEDS: pantoprazole DR 40 mg Tablet PO (08:47)
[2023-12-04] MEDS: azithromycin 500 MG in sodium chloride 0.9% 250 ML 250 MG IV (08:48)
--- NOTE | 2023-12-04 09:35 | PC.SOCIAL ---
IMM Update Pg. 2 of IMM Updated. Copy provided to patient.
--- NOTE | 2023-12-04 15:13 | P.PN_ITS ---
Subjective 2 Subjective: Patient was seen this morning, she denies any fevers, no chills, no cough continues to complain of shortness of breath Vitals/I&O/Wt Last Vital Signs Temp 98.6 F 12/04/23 09:05 Pulse 88 12/04/23 14:20 Resp 19 H 12/04/23 14:12 BP 118/69 12/04/23 12:45 Pulse Ox 97 12/04/23 14:14 O2 Del Method BiPAP 12/04/23 14:12 O2 Flow Rate 2.5 12/04/23 08:29 FiO2 28 12/04/23 14:14 12/04/23 12/04/23 12/04/23 06:59 14:59 22:59 Intake Total 120 / 1558 425 / 425 Balance 120 / 858 425 / 425 Weight last 48 hrs Weight 50.278 kg Weight 49.01 kg Physical Exam 2 Const: COMMON NORMALS: no acute distress and patient oriented x3 Resp: COMMON NORMALS: normal respiratory effort, No retractions and No use of accessory muscles AUSCULTATION: wheezes OTHER: tachypnea, barrel chest Cardio: COMMON NORMALS: regular rhythm, S1 normal heart sound present and S2 normal heart sound present RATE: tachycardic RHYTHM: regular rhythm H EART SOUNDS: S1 normal heart sound present and S2 normal heart sound present GI: COMMON NORMALS: Normal to inspection, nondistended, normoactive bowel sounds present and non-tender Extremity: COMMON NORMALS: no pedal edema Neuro: COMMON NORMALS: patient oriented x3 Psych: COMMON NORMALS: mental status grossly normal Urinary Catheter Management: Fry Latex: Cath Placed During This Visit: yes, but has since been removed by the nurse Reason for Continuing Indwelling Catheter: Accurate Measurement of Urinary Output in Critically Ill Patients Urinary Catheter Date of Insertion: 12/02/23 Urinary Catheter Time of Insertion: 05:15 Date Urinary Catheter Removed: 12/03/23 Time Urinary Catheter Discontinued: 20:50 Data 12/04/23 04:20 12/04/23 04:20 A&P Assessment and plan (1) Acute exacerbation of chronic obstructive airways disease: acute on chronic COPD exacerbation Continue ICU level monitoring Continue BiPAP therapy Monitor respiratory status closely Start methylprednisolone 80 mg IV every 6 hours duoneb q6h, budesonide q12h scheduled inhalation Continue Rocephin, azithromycin EKG showing sinus tachycardia, troponin series overall unremarkable. (2) Chronic respiratory failure with hypoxia and hypercapnia: Acute on chronic hypoxemic hypercapnic respiratory failure. Currently ABG showing hypercapnic respiratory acidosis. pCO2 improved to 57 (3) Acute hypoxic on chronic hypercapnic respiratory failure: Plan DVT prophylaxis: Lovenox 40 Full code Attestations 2 Medical Necessity Statement*: Patient requires hospitalization, for acute respiratory failure Diagnoses Acute exacerbation of chronic obstructive airways disease J44.1 Chronic respiratory failure with hypoxia and hypercapnia J96.11; J96.12 Acute hypoxic on chronic hypercapnic respiratory failure J96.01; J96.12
[2023-12-04] MEDS: enoxaparin 40 mg/0.4 mL Syringe SUBCUT (20:25)
[2023-12-04] MEDS: sertraline 50 mg Tablet PO (20:25)
[2023-12-05] VITALS (25 sets, daily range): BP systolic 116–174; BP diastolic 64–91; PULSE 70–111; RESP 16–24; TEMP 36.4–36.7; O2SAT 90–98
[2023-12-05] MEDS: ipratropium-albuterol 3 mL Neb INHALATION ×4 (02:50→20:43)
[2023-12-05 03:39] LABS: Basophils % 0.1 %; Hematocrit 44.8 % (36-47); Lymphocytes # 0.9 10^3/uL (0.8-4.8); Lymphocytes % 8.8 %; Mean Corpuscular HGB Conc 32.1 g/dL (30-55); Mean Corpuscular Hemoglobin 29.1 pg (27-33); Mean Corpuscular Volume 90.7 fl (85-98); Mean Platelet Volume 10.8 fL (7.4-10.4); Monocytes # 0.5 10^3/uL (0.2-0.9); Monocytes % 4.5 %; Neutrophils % 85.9 %; Nucleated Red Blood Cells % 0 %; Platelet Count 240 10^3/cmm (157-399); Red Blood Count 4.94 10^6/uL (3.85-5.65); Red Cell Distribution Width 12.5 % (12.1-15.1); White Blood Count 10.59 10^3/uL (3.29-11.43)
[2023-12-05 04:09] LABS: Anion Gap 10.5 (5-19); Blood Urea Nitrogen 24 mg/dL (8-23); Calcium 8.2 mg/dL (8.5-10.5); Carbon Dioxide 35 mmol/L (22-29); Chloride 101 mmol/L (98-107); Creatinine Clr Calc Pharmacy 98.7408; Glomerular Filtration Rate 124.6 mL/min (90-130); Glucose 137 mg/dL (65-115); NT Pro B Type Natriuretic Pept 392 pg/mL (0-125); Osmolality Calculated 300 mOsm/kg (285-295); Potassium 4.5 mmol/L (3.5-5.1); Sodium 142 mmol/L (136-145)
[2023-12-05] MEDS: azithromycin 500 MG in sodium chloride 0.9% 250 ML 250 MG IV (08:05)
[2023-12-05] MEDS: amlodipine 5 mg Tablet PO (08:05)
[2023-12-05] MEDS: pantoprazole DR 40 mg Tablet PO (08:05)
[2023-12-05] MEDS: cefTRIAXone 1,000 mg SDV 1000 MG IVP (08:07)
[2023-12-05] MEDS: methylPREDNISolone sod succ 125 mg/2 mL INJ 80 MG IVP ×2 (08:08→20:02)
[2023-12-05] MEDS: budesonide 0.5 mg/2 mL Neb INHALATION ×2 (08:33→20:43)
--- NOTE | 2023-12-05 14:01 | P.PN_ITS ---
Subjective 2 Subjective: Patient was seen this morning, she has complaints of persistent shortness of breath, no chest pain, no palpitations, no fevers, no chills, no nausea, no vomiting Vitals/I&O/Wt Last Vital Signs Temp 97.6 F 12/05/23 00:00 Pulse 71 12/05/23 13:45 Resp 17 12/05/23 13:43 BP 171/91 12/05/23 08:00 Pulse Ox 96 12/05/23 13:45 O2 Del Method BiPAP 12/05/23 13:43 O2 Flow Rate 3 12/05/23 08:33 FiO2 28 12/05/23 13:45 12/04/23 12/05/23 12/05/23 22:59 06:59 14:59 Intake Total 240 / 665 200 / 200 Output Total 300 / 300 300 / 600 Balance -60 / 365 -300 / 65 200 / 200 Weight last 48 hrs Weight 52.5 kg Weight 50.278 kg Physical Exam 2 Const: COMMON NORMALS: no acute distress and patient oriented x3 Resp: COMMON NORMALS: normal respiratory effort and No retractions A USCULTATION: crackles and wheezes Cardio: COMMON NORMALS: regular rate, regular rhythm, S1 normal heart sound present and S2 normal heart sound present RATE: regular rate RHYTHM: r egular rhythm HEART SOUNDS: S1 normal heart sound present and S2 normal heart sound present GI: COMMON NORMALS: Normal to inspection, nondistended, normoactive bowel sounds present and non-tender Extremity: COMMON NORMALS: no pedal edema Neuro: COMMON NORMALS: patient oriented x3 Urinary Catheter Management: Fry Latex: Cath Placed During This Visit: yes, but has since been removed by the nurse Reason for Continuing Indwelling Catheter: Accurate Measurement of Urinary Output in Critically Ill Patients Urinary Catheter Date of Insertion: 12/02/23 Urinary Catheter Time of Insertion: 05:15 Date Urinary Catheter Removed: 12/03/23 Time Urinary Catheter Discontinued: 20:50 Data 12/05/23 03:25 12/05/23 03:25 A&P Assessment and plan (1) Acute exacerbation of chronic obstructive airways disease: acute on chronic COPD exacerbation Continue ICU level monitoring Continue BiPAP therapy Monitor respiratory status closely Start methylprednisolone 80 mg IV every 12 hours duoneb q6h, budesonide q12h scheduled inhalation Continue Rocephin, azithromycin EKG showing sinus tachycardia, troponin series overall unremarkable. (2) Chronic respiratory failure with hypoxia and hypercapnia: Acute on chronic hypoxemic hypercapnic respiratory failure. Currently ABG showing hypercapnic respiratory acidosis. pCO2 improved to 57 (3) Acute hypoxic on chronic hypercapnic respiratory failure: Plan DVT prophylaxis: Lovenox 40 Full code Attestations 2 Medical Necessity Statement*: Patient requires hospitalization for acute hypoxic respiratory failure secondary to COPD Diagnoses Acute exacerbation of chronic obstructive airways disease J44.1 Chronic respiratory failure with hypoxia and hypercapnia J96.11; J96.12 Acute hypoxic on chronic hypercapnic respiratory failure J96.01; J96.12
[2023-12-05] MEDS: sertraline 50 mg Tablet PO (20:01)
[2023-12-05] MEDS: enoxaparin 40 mg/0.4 mL Syringe SUBCUT (20:30)
[2023-12-06] VITALS (26 sets, daily range): BP systolic 118–177; BP diastolic 61–111; PULSE 73–95; RESP 15–24; TEMP 36.7; O2SAT 88–98; BMI 18.3
[2023-12-06] MEDS: ipratropium-albuterol 3 mL Neb INHALATION ×4 (01:58→20:47)
[2023-12-06 05:05] LABS: Basophils % 0.2 %; Lymphocytes # 0.9 10^3/uL (0.8-4.8); Lymphocytes % 10.8 %; Mean Corpuscular HGB Conc 32.3 g/dL (30-55); Mean Corpuscular Hemoglobin 29.5 pg (27-33); Mean Corpuscular Volume 91.1 fl (85-98); Mean Platelet Volume 10.9 fL (7.4-10.4); Monocytes # 0.5 10^3/uL (0.2-0.9); Monocytes % 5.4 %; Neutrophils # 6.96 10^3/uL (1.8-7.7); Neutrophils % 82.1 %; Nucleated Red Blood Cells % 0 %; Platelet Count 265 10^3/cmm (157-399); Red Blood Count 5.16 10^6/uL (3.85-5.65); Red Cell Distribution Width 12.3 % (12.1-15.1); White Blood Count 8.49 10^3/uL (3.29-11.43)
[2023-12-06 05:23] LABS: Alanine Aminotransferase 16 U/L (0-33); Alkaline Phosphatase 105 U/L (35-105); Anion Gap 11.4 (5-19); Aspartate Amino Transferase 13 U/L (0-32); Blood Urea Nitrogen 19 mg/dL (8-23); Calcium 8.5 mg/dL (8.5-10.5); Carbon Dioxide 33 mmol/L (22-29); Chloride 99 mmol/L (98-107); Globulin 2.1 g/dL (1.3-4.6); Glomerular Filtration Rate 161.2 mL/min (90-130); Glucose 123 mg/dL (65-115); Osmolality Calculated 292 mOsm/kg (285-295); Potassium 4.4 mmol/L (3.5-5.1); Sodium 139 mmol/L (136-145); Total Bilirubin 0.3 mg/dL (0.15-1.2); Total Protein 6.1 g/dL (6.6-8.7)
[2023-12-06 05:24] LABS: Creatinine Clr Calc Pharmacy 125.4458
[2023-12-06 05:33] LABS: NT Pro B Type Natriuretic Pept 486 pg/mL (0-125)
[2023-12-06] MEDS: budesonide 0.5 mg/2 mL Neb INHALATION ×2 (08:34→20:47)
[2023-12-06] MEDS: azithromycin 500 MG in sodium chloride 0.9% 250 ML 250 MG IV (09:01)
[2023-12-06] MEDS: amlodipine 5 mg Tablet PO (09:02)
[2023-12-06] MEDS: methylPREDNISolone sod succ 125 mg/2 mL INJ 80 MG IVP (09:02)
[2023-12-06] MEDS: cefTRIAXone 1,000 mg SDV 1000 MG IVP (09:02)
[2023-12-06] MEDS: pantoprazole DR 40 mg Tablet PO (09:02)
--- NOTE | 2023-12-06 09:47 | PC.SOCIAL ---
IMM Update pg 2 of IMM Updated and reviewed w/ patient. Copy provided and copy dated, initialed and placed in chart.
--- NOTE | 2023-12-06 13:26 | P.PN_ITS ---
Vitals/I&O/Wt Last Vital Signs Temp 98.1 F 12/05/23 19:22 Pulse 88 12/06/23 09:00 Resp 21 H 12/06/23 09:00 BP 162/94 12/06/23 09:00 Pulse Ox 92 12/06/23 09:00 O2 Del Method Nasal Cannula 12/06/23 08:00 O2 Flow Rate 2 12/06/23 08:00 FiO2 28 12/05/23 13:45 12/05/23 12/06/23 12/06/23 22:59 06:59 14:59 Intake Total 250 / 650 200 / 200 Balance 250 / 650 200 / 200 Weight last 48 hrs Weight 50 kg Weight 52.5 kg Physical Exam 2 Const: COMMON NORMALS: no acute distress and patient oriented x3 Resp: COMMON NORMALS: normal respiratory effort, No retractions and No use of accessory muscles AUSCULTATION: wheezes Cardio: COMMON NORMALS: regular rate, regular rhythm, S1 normal heart sound present and S2 normal heart sound present RATE: regular rate RHYTHM: r egular rhythm HEART SOUNDS: S1 normal heart sound present and S2 normal heart sound present GI: COMMON NORMALS: Normal to inspection, nondistended, normoactive bowel sounds present, Soft to palpation, non-tender, No hepatosplenomegaly present, no masses and no bruits PALPATION: Yes Soft to palpation and Yes No hepatosplenomegaly present Extremity: COMMON NORMALS: capillary refill normal, no clubbing, cyanosis or edema, no calf tenderness and no pedal edema Neuro: COMMON NORMALS: patient oriented x3 Psych: COMMON NORMALS: mental status grossly normal Urinary Catheter Management: Fry Latex: Cath Placed During This Visit: yes, but has since been removed by the nurse Reason for Continuing Indwelling Catheter: Accurate Measurement of Urinary Output in Critically Ill Patients Urinary Catheter Date of Insertion: 12/02/23 Urinary Catheter Time of Insertion: 05:15 Date Urinary Catheter Removed: 12/03/23 Time Urinary Catheter Discontinued: 20:50 Data 12/06/23 04:30 12/06/23 04:30 A&P Assessment and plan (1) Acute exacerbation of chronic obstructive airways disease: acute on chronic COPD exacerbation ? Overall clinically improving, moved to medical floors, ? Overnight pulse ox completed Continue BiPAP therapy Monitor respiratory status closely De-escalate Solu-Medrol to 40 mg IV every 12 hours duoneb q6h, budesonide q12h scheduled inhalation Continue Rocephin, de-escalate to p.o. azithromycin EKG showing sinus tachycardia, troponin series overall unremarkable. (2) Chronic respiratory failure with hypoxia and hypercapnia: Acute on chronic hypoxemic hypercapnic respiratory failure. Currently ABG showing hypercapnic respiratory acidosis. pCO2 improved to 57 (3) Acute hypoxic on chronic hypercapnic respiratory failure: Plan DVT prophylaxis: Lovenox 40 Full code Attestations 2 Medical Necessity Statement*: Patient requires hospitalization for acute respiratory failure secondary to COPD Diagnoses Acute exacerbation of chronic obstructive airways disease J44.1 Chronic respiratory failure with hypoxia and hypercapnia J96.11; J96.12 Acute hypoxic on chronic hypercapnic respiratory failure J96.01; J96.12
[2023-12-06] MEDS: sertraline 50 mg Tablet PO (20:34)
[2023-12-06] MEDS: methylPREDNISolone sod succ 40 mg/mL INJ IVP (20:36)
[2023-12-06] MEDS: enoxaparin 40 mg/0.4 mL Syringe SUBCUT (20:38)
[2023-12-07] VITALS (30 sets, daily range): BP systolic 103–181; BP diastolic 63–93; PULSE 69–105; RESP 12–21; TEMP 36.6–37.2; O2SAT 91–98
[2023-12-07] MEDS: ipratropium-albuterol 3 mL Neb INHALATION ×4 (03:21→19:38)
[2023-12-07 04:39] LABS: Basophils % 0.1 %; Lymphocytes # 1.2 10^3/uL (0.8-4.8); Lymphocytes % 14.2 %; Mean Corpuscular HGB Conc 32.3 g/dL (30-55); Mean Corpuscular Hemoglobin 29.6 pg (27-33); Mean Corpuscular Volume 91.6 fl (85-98); Mean Platelet Volume 12.1 fL (7.4-10.4); Monocytes # 0.5 10^3/uL (0.2-0.9); Monocytes % 6.2 %; Neutrophils # 6.44 10^3/uL (1.8-7.7); Neutrophils % 78.4 %; Nucleated Red Blood Cells % 0 %; Platelet Count 182 10^3/cmm (157-399); Red Blood Count 5.24 10^6/uL (3.85-5.65); Red Cell Distribution Width 12.3 % (12.1-15.1); White Blood Count 8.22 10^3/uL (3.29-11.43)
[2023-12-07 05:00] LABS: Alanine Aminotransferase 23 U/L (0-33); Albumin Level 4.1 g/dL (3.5-5.2); Alkaline Phosphatase 100 U/L (35-105); Anion Gap 13.2 (5-19); Aspartate Amino Transferase 18 U/L (0-32); Blood Urea Nitrogen 21 mg/dL (8-23); Calcium 8.6 mg/dL (8.5-10.5); Carbon Dioxide 33 mmol/L (22-29); Chloride 100 mmol/L (98-107); Creatinine Clr Calc Pharmacy 98.5386; Globulin 1.9 g/dL (1.3-4.6); Glomerular Filtration Rate 124.6 mL/min (90-130); Glucose 122 mg/dL (65-115); Osmolality Calculated 296 mOsm/kg (285-295); Potassium 5.2 mmol/L (3.5-5.1); Sodium 141 mmol/L (136-145); Total Bilirubin 0.3 mg/dL (0.15-1.2)
[2023-12-07 05:10] LABS: NT Pro B Type Natriuretic Pept 192 pg/mL (0-125)
[2023-12-07] MEDS: budesonide 0.5 mg/2 mL Neb INHALATION ×2 (08:16→19:38)
[2023-12-07] MEDS: cefTRIAXone 1,000 mg SDV 1000 MG IVP (08:31)
[2023-12-07] MEDS: methylPREDNISolone sod succ 40 mg/mL INJ IVP ×2 (08:31→19:41)
[2023-12-07] MEDS: amlodipine 5 mg Tablet PO (08:32)
[2023-12-07] MEDS: pantoprazole DR 40 mg Tablet PO (08:32)
[2023-12-07] MEDS: azithromycin 250 mg Tablet PO (08:32)
--- NOTE | 2023-12-07 13:51 | P.PN_ITS ---
Subjective 2 Subjective: Patient was seen this morning, she denies any fevers, chills, no cough, does complain shortness of breath with exertion Vitals/I&O/Wt Last Vital Signs Temp 97.8 F 12/07/23 00:14 Pulse 101 H 12/07/23 12:00 Resp 17 12/07/23 12:00 BP 133/87 12/07/23 12:00 Pulse Ox 91 12/07/23 12:00 O2 Del Method Nasal Cannula 12/07/23 08:16 O2 Flow Rate 2 12/07/23 08:16 FiO2 28 12/07/23 03:22 12/06/23 12/07/23 12/07/23 22:59 06:59 14:59 Intake Total 450 / 850 0 / 850 420 / 420 Balance 450 / 850 0 / 850 420 / 420 Weight last 48 hrs Weight 49 kg Weight 50 kg Physical Exam 2 Const: COMMON NORMALS: no acute distress and patient oriented x3 Resp: COMMON NORMALS: normal respiratory effort, No retractions, No use of accessory muscles and clear to auscultation bilaterally AUSCULTATION: clear to auscultation bilaterally Cardio: COMMON NORMALS: regular rate, regular rhythm, S1 normal heart sound present and S2 normal heart sound present RATE: regular rate RHYTHM: r egular rhythm HEART SOUNDS: S1 normal heart sound present and S2 normal heart sound present GI: COMMON NORMALS: Normal to inspection, nondistended, normoactive bowel sounds present and non-tender Extremity: COMMON NORMALS: no pedal edema Neuro: COMMON NORMALS: patient oriented x3 Psych: COMMON NORMALS: mental status grossly normal Urinary Catheter Management: Fry Latex: Cath Placed During This Visit: yes, but has since been removed by the nurse Reason for Continuing Indwelling Catheter: Accurate Measurement of Urinary Output in Critically Ill Patients Urinary Catheter Date of Insertion: 12/02/23 Urinary Catheter Time of Insertion: 05:15 Date Urinary Catheter Removed: 12/03/23 Time Urinary Catheter Discontinued: 20:50 Data 12/07/23 04:18 12/07/23 04:18 Micro: Microbiology 12/01/23 20:25 Blood Culture - Final Blood NO GROWTH AFTER 5 DAYS 12/01/23 20:21 Blood Culture - Final Blood NO GROWTH AFTER 5 DAYS A&P Assessment and plan (1) Acute exacerbation of chronic obstructive airways disease: acute on chronic COPD exacerbation ? Overall clinically improving, moved to medical floors, ? Overnight pulse ox completed Continue BiPAP therapy Monitor respiratory status closely De-escalate Solu-Medrol to 40 mg IV every 12 hours duoneb q6h, budesonide q12h scheduled inhalation Discontinue Rocephin, de-escalate to p.o. azithromycin EKG showing sinus tachycardia, troponin series overall unremarkable. (2) Chronic respiratory failure with hypoxia and hypercapnia: (3) Acute hypoxic on chronic hypercapnic respiratory failure: Plan DVT prophylaxis: Lovenox 40 Full code Attestations 2 Medical Necessity Statement*: Patient requires hospitalization for acute hypoxic respiratory failure secondary to COPD, Diagnoses Acute exacerbation of chronic obstructive airways disease J44.1 Chronic respiratory failure with hypoxia and hypercapnia J96.11; J96.12 Acute hypoxic on chronic hypercapnic respiratory failure J96.01; J96.12
[2023-12-07] MEDS: enoxaparin 40 mg/0.4 mL Syringe SUBCUT (19:57)
[2023-12-07] MEDS: sertraline 50 mg Tablet PO (19:59)
--- NOTE | 2023-12-07 20:14 | PC.NURSE ---
Transferred to RM 276-2 via wheelchair. Update report given to FABRICE Wooten.
[2023-12-08] VITALS (15 sets, daily range): BP systolic 125–150; BP diastolic 73–79; PULSE 83–99; RESP 12–20; TEMP 36.4–36.8; O2SAT 95–99
[2023-12-08] MEDS: ipratropium-albuterol 3 mL Neb INHALATION ×4 (02:56→22:17)
[2023-12-08 05:35] LABS: Basophils % 0.2 %; Hematocrit 48.1 % (36-47); Lymphocytes # 1.3 10^3/uL (0.8-4.8); Lymphocytes % 13.2 %; Mean Corpuscular HGB Conc 31.8 g/dL (30-55); Mean Corpuscular Hemoglobin 28.7 pg (27-33); Mean Corpuscular Volume 90.2 fl (85-98); Mean Platelet Volume 11.4 fL (7.4-10.4); Monocytes # 0.6 10^3/uL (0.2-0.9); Monocytes % 6.1 %; Neutrophils # 7.52 10^3/uL (1.8-7.7); Neutrophils % 79.4 %; Nucleated Red Blood Cells % 0 %; Platelet Count 242 10^3/cmm (157-399); Red Blood Count 5.33 10^6/uL (3.85-5.65); Red Cell Distribution Width 12.3 % (12.1-15.1); White Blood Count 9.47 10^3/uL (3.29-11.43)
[2023-12-08 06:03] LABS: Alanine Aminotransferase 35 U/L (0-33); Albumin Level 3.9 g/dL (3.5-5.2); Alkaline Phosphatase 102 U/L (35-105); Anion Gap 13.8 (5-19); Aspartate Amino Transferase 22 U/L (0-32); Blood Urea Nitrogen 22 mg/dL (8-23); Calcium 8.3 mg/dL (8.5-10.5); Carbon Dioxide 32 mmol/L (22-29); Chloride 99 mmol/L (98-107); Globulin 2.1 g/dL (1.3-4.6); Glomerular Filtration Rate 124.6 mL/min (90-130); Glucose 115 mg/dL (65-115); Osmolality Calculated 294 mOsm/kg (285-295); Potassium 4.8 mmol/L (3.5-5.1); Sodium 140 mmol/L (136-145); Total Bilirubin 0.3 mg/dL (0.15-1.2)
[2023-12-08 06:09] LABS: NT Pro B Type Natriuretic Pept 80 pg/mL (0-125)
[2023-12-08] MEDS: budesonide 0.5 mg/2 mL Neb INHALATION ×2 (07:23→22:18)
[2023-12-08] MEDS: methylPREDNISolone sod succ 40 mg/mL INJ IVP (09:43)
[2023-12-08] MEDS: pantoprazole DR 40 mg Tablet PO (09:44)
[2023-12-08] MEDS: amlodipine 5 mg Tablet PO (09:44)
[2023-12-08] MEDS: azithromycin 250 mg Tablet PO (09:47)
--- NOTE | 2023-12-08 09:53 | PC.NURSE ---
Patient refuses to push call light for standby assist to go to the restroom. Patient states she can get up and go by herself. Patient is a kristina fall risk.
--- NOTE | 2023-12-08 12:39 | P.PN_ITS ---
Subjective 2 Subjective: Patient was seen this morning, she is up to the side of the bed, overall she feels better, still a bit short of breath, discussed compliance with BiPAP, arranging for outpatient BiPAP Vitals/I&O/Wt Last Vital Signs Temp 97.6 F 12/08/23 12:00 Pulse 86 12/08/23 12:00 Resp 18 12/08/23 12:00 BP 150/75 12/08/23 12:00 Pulse Ox 96 12/08/23 12:00 O2 Del Method Nasal Cannula 12/08/23 12:00 O2 Flow Rate 2 12/08/23 07:23 FiO2 28 12/08/23 03:05 12/07/23 12/08/23 12/08/23 22:59 06:59 14:59 Intake Total 0 / 420 360 / 360 Output Total 0 / 0 Balance 0 / 420 360 / 360 Weight last 48 hrs Weight 48.807 kg Weight 49 kg Physical Exam 2 Const: COMMON NORMALS: no acute distress and patient oriented x3 Resp: COMMON NORMALS: normal respiratory effort, No retractions, No use of accessory muscles and clear to auscultation bilaterally AUSCULTATION: clear to auscultation bilaterally Cardio: COMMON NORMALS: regular rate, regular rhythm, S1 normal heart sound present and S2 normal heart sound present RATE: regular rate RHYTHM: r egular rhythm HEART SOUNDS: S1 normal heart sound present and S2 normal heart sound present GI: COMMON NORMALS: Normal to inspection, nondistended, normoactive bowel sounds present and non-tender Extremity: COMMON NORMALS: no pedal edema Neuro: COMMON NORMALS: patient oriented x3 Psych: COMMON NORMALS: mental status grossly normal Urinary Catheter Management: Fry Latex: Cath Placed During This Visit: yes, but has since been removed by the nurse Reason for Continuing Indwelling Catheter: Accurate Measurement of Urinary Output in Critically Ill Patients Urinary Catheter Date of Insertion: 12/02/23 Urinary Catheter Time of Insertion: 05:15 Date Urinary Catheter Removed: 12/03/23 Time Urinary Catheter Discontinued: 20:50 Data 12/08/23 05:07 12/08/23 05:07 A&P Assessment and plan (1) Acute exacerbation of chronic obstructive airways disease: acute on chronic COPD exacerbation ? Overall clinically improving, moved to medical floors, ? Overnight pulse ox completed, qualifies for BiPAP will arrange for outpatient hopefully by Saturday Continue BiPAP therapy Monitor respiratory status closely De-escalate Solu-Medrol to 40 mg IV every 12 hours, down to prednisone 40 mg daily duoneb q6h, budesonide q12h scheduled inhalation Discontinue Rocephin, de-escalate to p.o. azithromycin EKG showing sinus tachycardia, troponin series overall unremarkable. (2) Chronic respiratory failure with hypoxia and hypercapnia: (3) Acute hypoxic on chronic hypercapnic respiratory failure: Plan DVT prophylaxis: Lovenox 40 Full code Plan of discharging in the next 24 hours Attestations 2 Medical Necessity Statement*: Patient requires hospitalization for acute COPD exacerbation, arranging for outpatient BiPAP Diagnoses Acute exacerbation of chronic obstructive airways disease J44.1 Chronic respiratory failure with hypoxia and hypercapnia J96.11; J96.12 Acute hypoxic on chronic hypercapnic respiratory failure J96.01; J96.12
[2023-12-08] MEDS: sertraline 50 mg Tablet PO (21:07)
[2023-12-08] MEDS: enoxaparin 40 mg/0.4 mL Syringe SUBCUT (21:07)
[2023-12-09] VITALS (12 sets, daily range): BP systolic 113–139; BP diastolic 76–80; PULSE 85–110; RESP 12–19; TEMP 36.4–36.7; O2SAT 92–98
[2023-12-09] MEDS: ipratropium-albuterol 3 mL Neb INHALATION ×2 (02:33→07:58)
[2023-12-09] MEDS: budesonide 0.5 mg/2 mL Neb INHALATION (07:58)
[2023-12-09] MEDS: predniSONE 20 mg Tablet 40 MG PO (08:04)
[2023-12-09] MEDS: pantoprazole DR 40 mg Tablet PO (08:04)
[2023-12-09] MEDS: azithromycin 250 mg Tablet PO (08:04)
[2023-12-09] MEDS: amlodipine 5 mg Tablet PO (08:04)
--- NOTE | 2023-12-09 12:09 | P.DS_ITS ---
Discharge Providers Date of Admission: 12/01/23 21:25 Date of Discharge: December 09, 2023 Attending Provider at Admission: Herminia Salazar MD Attending Provider at Discharge: Mario Michaels MD Primary Care Provider: Teodoro Peter DO Diagnoses at Discharge Discharge Diagnosis (1) Acute exacerbation of chronic obstructive airways disease: Status: Acute (2) Chronic respiratory failure with hypoxia and hypercapnia: Status: Acute (3) Acute hypoxic on chronic hypercapnic respiratory failure: Status: Acute Reason for Visit Reason for Visit: SOB Brief History: History as per HPI: Ebonie Damon is a 63 year old female with a past medical history of COPD, on chronic home oxygen, severely reduced DLCO at 25%. She presented to the emergency room today with chief complaints of being short of breath . She has had increased mucus production, increased cough and creased dyspnea for the past 3 days. Her oxygen requirement is currently at 5 to 6 L/min, from her usual 3 L/min at home. There is diffuse wheezing on exam. Patient is significantly tachypneic with a respiratory rate of 40/min at the time of this assessment, she did require to be placed on BiPAP due to impending respiratory fatigue in the emergency room. Denies any chest pain. Hospital Course Hospital Course Patient was admitted to the ICU for management of acute on chronic hypoxic and hypercapnic respiratory failure. On admission she required BiPAP ventilation. She was started on IV steroids along with nebulization treatment. She was started on broad-spectrum antibiotics which were later de-escalated as pneumonia was ruled out. She responded well gradually to the treatment. She is back to her baseline oxygen supplementation with baseline respiratory effort. She did undergo overnight pulse oximetry during hospitalization though she did not qualify for BiPAP at home. She has been discharged in stable condition at baseline for supplementation on nebulization treatment, steroid taper as an outpatient. She is to follow-up with a primary care provider within next 1 week. Physical Exam Narrative: General: No acute distress, AO x3 HEENT: PERRLA, pupils bilaterally equal and reactive, pallors not present Chest: Bilateral diffuse wheezing to auscultation all areas, significantly tachypneic with respiratory rate of 40 to CVS: S1-S2 regular, no murmurs, no tachycardia, no gallops, no rubs Abdomen: Soft, nontender, no organomegaly, bowel sounds present Neuro: No focal deficits, no facial deformity, AO x3, power 5/5 in all limbs Extremities: No edema clubbing or cyanosis Urinary Catheter Management: Fry Latex: Cath Placed During This Visit: yes, but has since been removed by the nurse Reason for Continuing Indwelling Catheter: Accurate Measurement of Urinary Output in Critically Ill Patients Urinary Catheter Date of Insertion: 12/02/23 Urinary Catheter Time of Insertion: 05:15 Date Urinary Catheter Removed: 12/03/23 Time Urinary Catheter Discontinued: 20:50 Discharge Data Studies Completed and Pending Completed Studies During Hospitalization Category Date Time Status XR chest 1V portable [id number] Stat Exams 12/01/23 20:07 Completed Radiology Impressions Chest X-Ray 12/01/23 20:07 IMPRESSION: Pulmonary hyperinflation with emphysematous changes. No acute cardiopulmonary findings. Laboratory Results WBC 9.47 10^3/uL (3.29-11.43) 12/08/23 05:07 RBC 5.33 10^6/uL (3.85-5.65) 12/08/23 05:07 Hgb 15.30 g/dL (11.27-16.99) 12/08/23 05:07 Hct 48.1 % (36-47) H 12/08/23 05:07 MCV 90.2 fl (85-98) 12/08/23 05:07 MCH 28.7 pg (27-33) 12/08/23 05:07 MCHC 31.8 g/dL (30-55) 12/08/23 05:07 RDW 12.3 % (12.1-15.1) 12/08/23 05:07 Plt Count 242 10^3/cmm (157-399) D 12/08/23 05:07 MPV 11.4 fL (7.4-10.4) H 12/08/23 05:07 Neut % (Auto) 79.4 % 12/08/23 05:07 Lymph % (Auto) 13.2 % 12/08/23 05:07 [place] % (Auto) 6.1 % 12/08/23 05:07 Eos % (Auto) 0.0 % 12/08/23 05:07 Baso % (Auto) 0.2 % 12/08/23 05:07 Neut # (Auto) 7.52 10^3/uL (1.8-7.7) 12/08/23 05:07 Lymph # (Auto) 1.3 10^3/uL (0.8-4.8) 12/08/23 05:07 [place] # (Auto) 0.6 10^3/uL (0.2-0.9) 12/08/23 05:07 Eos # (Auto) 0.0 10^3/uL (0.0-0.8) 12/08/23 05:07 Baso # (Auto) 0.0 10^3/uL (0.0-0.1) 12/08/23 05:07 Nucleated RBC % (auto) 0 % 12/08/23 05:07 Nucleated RBCs # 0.0 /100WBC 12/08/23 05:07 D-Dimer 0.40 ug/mLFEU (0-0.59) 12/01/23 20:21 Specimen Type Arterial 12/02/23 13:23 Sample Site Brachial, right 12/02/23 13:23 ABG pH 7.37 (7.35-7.45) 12/02/23 13:23 ABG pCO2 57.0 mmHg (35-45) H 12/02/23 13:23 ABG pO2 131.0 mmHg (80.0-100.0) H 12/02/23 13:23 ABG PO2/FiO2 Ratio 374 12/02/23 13:23 ABG HCO3 32.7 mmol/L (22-26) H 12/02/23 13:23 ABG O2 Saturation 98.7 12/01/23 20:12 ABG Base Excess 5.6 mmol/L (-2.0-2.0) H 12/02/23 13:23 Twan Test N/a 12/02/23 13:23 A-a O2 Gradient 0.0 mmHg (5-10) L 12/01/23 20:12 Hematocrit 45.2 % (37-47) 12/02/23 13:23 Hgb O2 Saturation 96.9 % (95-100) 12/01/23 20:12 Carboxyhemoglobin 1.6 %THgb (0.4-20.1) 12/01/23 20:12 Methemoglobin 0.2 % (0.4-1.5) L 12/01/23 20:12 Total Hemoglobin 16.4 g/dL (12-16) H 12/01/23 20:12 Sodium 140.0 mmol/L (131-143) 12/01/23 20:12 Potassium 3.9 mmol/L (3.5-5.0) 12/01/23 20:12 Glucose 98.0 mg/dL (70-115) 12/01/23 20:12 Ionized Calcium 1.2 mmol/L (1.1-1.4) 12/01/23 20:12 O2 Delivery Device Bipap 12/02/23 13:23 O2 Liters/Min 3.0 % 12/01/23 20:12 FiO2 35.0 % 12/02/23 13:23 Tidal Volume 0.40 12/02/23 13:23 PEEP 8.0 cmH20 12/02/23 13:23 Asic Verification Engineer ID [id number] 12/02/23 13:23 Sodium 140 mmol/L (136-145) 12/08/23 05:07 Potassium 4.8 mmol/L (3.5-5.1) 12/08/23 05:07 Chloride 99 mmol/L (98-107) 12/08/23 05:07 Carbon Dioxide 32 mmol/L (22-29) H 12/08/23 05:07 Anion Gap 13.8 (5-19) 12/08/23 05:07 BUN 22 mg/dL (8-23) 12/08/23 05:07 Creatinine 0.5 mg/dL (0.5-0.9) 12/08/23 05:07 GFR Calculation 124.6 mL/min (90-130) 12/08/23 05:07 Glucose 115 mg/dL (65-115) 12/08/23 05:07 Calculated Osmolality 294 mOsm/kg (285-295) 12/08/23 05:07 Lactic Acid 1.7 mmol/L (0.5-2.2) 12/01/23 20:21 Calcium 8.3 mg/dL (8.5-10.5) L 12/08/23 05:07 Total Bilirubin 0.3 mg/dL (0.15-1.2) 12/08/23 05:07 AST 22 U/L (0-32) 12/08/23 05:07 ALT 35 U/L (0-33) H 12/08/23 05:07 Alkaline Phosphatase 102 U/L (35-105) 12/08/23 05:07 Troponin T Baseline 12 ng/L (0-10) H 12/01/23 20:21 Troponin T 120 Minute 13.54 ng/L (0-10) H 12/01/23 22:31 Delta Troponin T 1.54 ABS# (0-10) 12/01/23 22:31 Troponin T Hi Sens 6Hr 9.01 ng/L (0-10) 12/02/23 02:23 Troponin T Hi Sens 6Hr Delta -2.99 ng/L (0-12) L 12/02/23 02:23 C-Reactive Protein 3.0 mg/L (0.0-4.9) 12/08/23 05:07 NT-Pro-B Natriuret Pep 80 pg/mL (0-125) 12/08/23 05:07 Total Protein 6.0 g/dL (6.6-8.7) L 12/08/23 05:07 Albumin 3.9 g/dL (3.5-5.2) 12/08/23 05:07 Globulin 2.1 g/dL (1.3-4.6) 12/08/23 05:07 Urine Color Yellow (Yellow) 12/01/23 20:56 Urine Appearance Clear (CLEAR) 12/01/23 20:56 Urine pH 5.5 (5-7) 12/01/23 20:56 Ur Specific [place] 1.017 (1.005-1.030) 12/01/23 20:56 Urine Protein 1+ (Negative) A 12/01/23 20:56 Urine Glucose (UA) Negative (Normal) 12/01/23 20:56 Urine Ketones 1+ (Negative) H 12/01/23 20:56 Urine Blood Negative (Negative) 12/01/23 20:56 Urine Nitrate Negative (Negative) 12/01/23 20:56 Urine Bilirubin Negative (Negative) 12/01/23 20:56 Urine Urobilinogen 1.0 mg/dL (Negative) 12/01/23 20:56 Ur Leukocyte Esterase Trace (Negative) A 12/01/23 20:56 Urine RBC 0-2 /hpf (0-2) 12/01/23 20:56 Urine WBC 0-5 /hpf (0-5) 12/01/23 20:56 Ur Squamous Epith Cells 6-10 /hpf (0-5) 12/01/23 20:56 Amorphous Sediment Not Reportable 12/01/23 20:56 Urine Bacteria Trace /hpf (NONE) 12/01/23 20:56 Hyaline Casts 1.21 /lpf 12/01/23 20:56 Coronavirus (PCR) Negative (Negative) 12/01/23 20:25 Influenza A (PCR) Negative (Negative) 12/01/23 20:25 Influenza Type B (PCR) Negative (Negative) 12/01/23 20:25 RSV (PCR) Negative (Negative) 12/01/23 20:25 Vitals Last Vital Signs Temp 97.6 F 12/09/23 07:56 Pulse 99 12/09/23 08:06 Resp 16 12/09/23 07:59 BP 128/76 12/09/23 07:56 Pulse Ox 96 12/09/23 07:59 O2 Del Method Nasal Cannula 12/09/23 07:59 O2 Flow Rate 2 12/09/23 07:59 FiO2 28 12/09/23 04:36 Discharge Plan Discharge Patient Disposition: Home Condition: Stable Prescriptions: New azithromycin 250 mg Tablet 250 mg PO EVERY OTHER DAY 30 Days Qty: 15 2RF amlodipine 5 mg Tablet 5 mg PO DAILY Qty: 30 0RF pantoprazole 40 mg Tablet,Delayed Release (Dr/Ec) 40 mg PO DAILY Qty: 30 0RF prednisone 10 mg tablet See Taper PO DIRECTED Qty: 42 0RF Taper: predniSONE 60-10 60 mg Daily for 2 Days and 0 Hour 50 mg Daily for 2 Days and 0 Hour 40 mg Daily for 2 Days and 0 Hour 30 mg Daily for 2 Days and 0 Hour 20 mg Daily for 2 Days and 0 Hour 10 mg Daily for 2 Days and 0 Hour Rx Instructions: see taper instructions Continued formoterol fumarate [Perforomist] 20 mcg/2 mL solution for nebulization 2 ml inhalation BID Qty: 120 11RF Yupelri 175 mcg/3 mL solution for nebulization 175 mcg inhalation DAILY Qty: 90 11RF trazodone 50 mg tablet 50 mg PO BEDTIME Trelegy Ellipta 200-62.5-25 mcg blister with device 1 inh INHALATION BID montelukast 10 mg tablet 10 mg PO DAILY PRN (Reason: Allergy Symptoms) albuterol sulfate [Proventil HFA] 90 mcg/actuation HFA aerosol inhaler 2 puff inhalation Q4H PRN (Reason: shortness of breath or wheezing) Discharge Orders: Discharge Order (Routine); Ordered 12/09/23 Ordered By: Mario Michaels Referrals: Teodoro Peter DO [Primary Care Provider] - 12/17/23 11:00 am (APPOINTMENT WITH [facility]) Discharge Diet: Cardiac Discharge Activity: Resume usual activity and Increase activity as tolerated Patient Instructions: COPD, Prednisone (By mouth), Azithromycin (By mouth), Amlodipine (By mouth), Pantoprazole (By mouth), COPD Stoplight, Opioid Safety Discharge Attestations Time Spent in Discharge Care*: greater than 30 min Specific Discharge Activities: educating patient, educating and/or supporting family/caregiver, discussing with pcp/other providers, discussing with mental health case manager/social workers/dc planners, documenting/other paperwork and evaluating patient/reviewing data Status at Discharge: Cognitive status at discharge: cognitively intact , Behavioral status at discharge: cooperative , Functional status at discharge: uses cane/walker , Overall status at discharge: patient is back to baseline Quality Metrics Clinical Quality Measures [ No reported AMI, CVA or VTE this stay] Coding Level of Care Code 82799 Total time (in minutes) for Discharge: 50 Diagnoses Acute exacerbation of chronic obstructive airways disease J44.1 Chronic respiratory failure with hypoxia and hypercapnia J96.11; J96.12 Acute hypoxic on chronic hypercapnic respiratory failure J96.01; J96.12
--- NOTE | 2023-12-09 13:27 | PC.SOCIAL ---
IMM Updated Updated pt on IMM. No questions voiced. Provided pt a copy. Initialed ,dated, & timed a copy & placed in chart.
== END 2023-12-09 13:51 | disposition home or self-care (01) | DRG 189 ==
LOC: ER 21:18 → ICU 21:39 → MEDSURG 12-07 19:54
PROVIDERS: Family Medicine; Admitting Provider Student in an Organized Health Care Education/Training Program; Emergency Provider Emergency Medicine; PCP Internal Medicine; Visit Provider Student in an Organized Health Care Education/Training Program
DX: J96.21 Acute and chronic respiratory failure with hypoxia (principal); J44.1 Chronic obstructive pulmonary disease with (acute) exacerbation; J96.22 Acute and chronic respiratory failure with hypercapnia; F17.210 Nicotine dependence, cigarettes, uncomplicated; Z99.81 Dependence on supplemental oxygen
CPT/HCPCS: 0241U; 36415; 36600; 51702; 71045; 80048; 80051; 80053; 81001; 82330; 82803; 82805; 83605; 83880; 84484; 85025; 85378; 86140; 87040; 93005; 94640; 94660; 94664; 94762; 96365; 96372; 96374; 96375; 96376; 99291; J0456; J0696; J1650; J2060; J2919; J3490; J7040; J7050; J7512; J7613; J7626; Q0144